=== PATIENT | male | born 1950 | race Caucasian/White ===

== ENCOUNTER → 2020-03-07 13:51 | Outpatient (CLI) | payer MEDICARE, OTHER, SELFPAY ==
[2020-03-07 15:12] LABS: Add Manual Diff / Slide Review NO; Basophils Absolute Auto 0 /uL (0-100); Basophils Percent Auto 0.4 % (0-2); Eosinophils Absolute Auto 100 /uL (0-450); Eosinophils Percent Auto 1.6 % (2-4); Hematocrit 39.3 % (41-53); Hemoglobin 13.4 g/dL (13.5-17.5); Lymphocytes Absolute Auto 1200 /uL (1100-4500); Mean Corpuscular Hemoglobin 31.8 PG (26-34); Mean Corpuscular Volume 93.6 fL (80-100); Monocytes Absolute Auto 600 /uL (0-900); Monocytes Percent Auto 9.5 % (3-14); Neutrophils Absolute Auto 4000 /uL (1500-7000); Neutrophils Percent Auto 67.5 % (50-75); Platelet Count 200 X10^3/uL (150-400); Red Cell Distribution Width 12.7 % (11.6-14.8); White Blood Cell Count 5.9 X10^3/uL (4.5-11.0)
[2020-03-07 16:02] LABS: Carbon Dioxide 28 mmol/L (22-32); Chloride 104 mmol/L (98-107); HEMOLYSIS < 15 (0-50); Potassium 3.7 mmol/L (3.4-5.1); Sodium 137 mmol/L (137-145)
== END ==
PROVIDERS: PCP Internal Medicine; Referring Provider Orthopaedic Surgery; Visit Provider Orthopaedic Surgery
DX: Z01.818 Encounter for other preprocedural examination (principal); Z01.812 Encounter for preprocedural laboratory examination
CPT/HCPCS: 36415; 80051; 85025; 93005; 93010

== ENCOUNTER → 2020-03-20 11:13 | Outpatient (CLI) | payer MEDICARE, OTHER, SELFPAY ==
[2020-03-21 21:20] LABS: COVID19 Sendout Not Detected (Not Detect)
== END ==
PROVIDERS: PCP Internal Medicine; Visit Provider Physician Assistant
DX: Z01.818 Encounter for other preprocedural examination (principal)
CPT/HCPCS: 87635

== ENCOUNTER 2020-03-23 08:08 | Day surgery (SDC) | payer MEDICARE, OTHER, SELFPAY ==
[2020-03-16 12:51] VITALS: BMI 32.0
[2020-03-23] VITALS (11 sets, daily range): BP systolic 124–151; BP diastolic 64–79; PULSE 73–93; RESP 14–19; TEMP 36.3–37.1; O2SAT 93–99; BMI 32.0
[2020-03-23] MEDS: ACETAMINOPHEN 325 MG TABLET 975 MG PO (09:17)
[2020-03-23] MEDS: CELECOXIB 200 MG CAPSULE PO (09:18)
[2020-03-23] MEDS: LACTATED RINGERS 1,000 ML 42 ML IV (09:18)
--- NOTE | 2020-03-23 09:43 | PM.PREOP ---
Pre-operative Note COVID-19 COVID-19 status: Negative Result date/Date tested (Pos, Neg/Pending): 03/21/20 Interval Note History & Physical reviewed/Exam performed by Physician: Yes Changes to H&P: No
--- NOTE | 2020-03-23 09:44 | PM.HP.1 ---
History of Present Illness History of Present Illness Date Patient Seen: 03/23/20 Time Patient Seen: 09:44 Chief complaint: Right Total Hip Arthroplasty *OPB* Narrative: 69-year-old male with severe right hip DJD admitted for right total hip arthroplasty. Patient History Medical History Easy bruisability (Acute) GERD (gastroesophageal reflux disease) (Acute) Hearing impaired (Acute) HLD (hyperlipidemia) (Acute) HTN (hypertension) (Acute) Meniere's disease (Acute) Numbness (Acute) MAYTE on CPAP (Acute) Osteoarthritis (Acute) Prostate cancer (Acute ~2017) Sciatica (Acute) Surgical History History of colonoscopy (Acute) History of esophagogastroduodenoscopy (EGD) (Acute) Hx of appendectomy (Acute) Hx of bilateral cataract extraction (Acute) Hx of decompressive lumbar laminectomy (Acute) Hx of neck surgery (Acute) Family & Social History Social History: household members spouse Prior Living Arrangements House Safety & Behavioral: Feels Safe in Current Yes Environment Been Physically Hurt or No Threatened By a Person Suicidal Ideation Description None Suicide Plan Description No Plan Tobacco & Substance use: Tobacco type cigarettes Smoking Status Former smoker alcohol intake current alcohol intake frequency 0-2 drinks per day Substance Use Type marijuana Meds Home Medications and Allergies Home Medications Medication Instructions Recorded Confirmed Type [omega 3 krill oil] 300 mg PO Q DAY #0 05/30/12 03/23/20 History aspirin 81 mg PO Q OTHER DAY #0 05/30/12 03/23/20 History cholecalciferol (vitamin D3) 125 mcg PO DAILY #0 05/30/12 03/23/20 History [Vitamin D3] multivitamin 1 cap PO DAILY #0 05/30/12 03/23/20 History omeprazole 20 mg PO SEEINSTR #0 05/30/12 03/23/20 History hydrochlorothiazide 25 mg PO QDAY #30 03/06/13 03/23/20 Rx amlodipine [Norvasc] 10 mg PO QDAY 03/16/20 03/23/20 History atorvastatin 40 mg PO BEDTIME 03/16/20 03/23/20 History gabapentin 300 mg PO BEDTIME PRN 03/16/20 03/23/20 History ibuprofen [Advil] 200 mg PO BEDTIME PRN 03/16/20 03/23/20 History losartan 100 mg PO QDAY 03/16/20 03/23/20 History metoprolol succinate 50 mg PO BEDTIME 03/16/20 03/23/20 History Allergies Allergy/AdvReac Type Severity Reaction Status Date / Time From CRESTOR Allergy Mild MUSCLE Uncoded 03/23/20 08:33 PAIN, FATIGUE From VYTORIN Allergy Mild MUSCLE Uncoded 03/23/20 08:33 PAIN,FATIGUE LISINOPRIL AdvReac Mild COUGH Uncoded 03/23/20 08:33 Review of Systems Review of Systems ROS: Yes All systems reviewed with the patient and are negative except as otherwise documented Exam Vital Signs (past 8 hours): - 03/23/20 08:38 Temperature 98.1 F Pulse Rate 74 Respiratory Rate 18 Blood Pressure 151/79 H Pulse Oximetry 99 Oxygen Delivery Method Room Air Narrative Exam Narrative: Afebrile, vital signs stable. Awake alert oriented and conversant in no obvious distress HEENT normocephalic atraumatic Lungs clear to auscultation Heart regular rate rhythm Abdomen benign Extremities distal neurovascular examination is intact there is limited range of motion of the right hip with pain on extremes of motion Assessment & Plan Assessment & Plan narrative: 69-year-old male with severe right hip DJD. Plan right total hip arthroplasty COVID-19 COVID-19 status: Negative Result date/Date tested (Pos, Neg/Pending): 03/21/20
[2020-03-23] MEDS: CEFAZOLIN 2 GM/100 ML FROZ.PIGGY IV ×2 (10:30→18:08)
--- NOTE | 2020-03-23 10:58 | SUR.OPER ---
Lateral on padded OR bed. Gel axillary roll. Arms secured on padded armboard with pillow supporting top arm. Padded hip positioner braces x4 - anterior and posterior chest and pelvis. Additional gel pad used anterior pelvis. Gel pad under bottom leg from knee to foot and secured with tape over sheet.
[2020-03-23] MEDS: ROPIVACAINE 0.5% PF 5 MG/ML 20ML VIAL 60 ML INJ (11:02)
[2020-03-23] MEDS: TRANEXAMIC ACID 1,000 MG VIAL 1000 MG INJ ×2 (11:02→11:30)
[2020-03-23] MEDS: MORPHINE 4 MG/ML INJ INJ (11:03)
[2020-03-23] MEDS: KETOROLAC 30 MG/ML VIAL IV (11:04)
--- NOTE | 2020-03-23 11:55 | P.OP_ITS ---
Operative Date/Time/Diagnoses Date of procedure: 03/23/20 Time of procedure: 11:55 Pre-op diagnosis: Right hip DJD Post-op diagnosis: same Procedure & Clinicians Procedure: Right total hip arthroplasty (CPT code 57008 with photo studio assistant) Same procedure as scheduled: Yes Indications: Patient is an 69-year-old male with severe right hip DJD. The patient has pain with activities and at rest, limited ambulation and activity tolerance, difficulties with ADLs, and failure of conservative treatment. We have discussed the nature of condition, treatment options, risks and benefits, and patient elects to proceed with total hip arthroplasty and gives informed consent. Surgeon: Bernabe Andrade Retail Manager: Kevyn Rasmussen Anesthesia Type: General Operative Notes Closure Type: primary Specimen(s): none sent Prosthetic devices, grafts, tissues, transplants, or devices: Acetabulum: Garcia [employer]hew R3 acetabular component size 54 mm Femoral component: Garcia [employer]hew Anthology stem size 7 with standard offset Femoral head: 36 mm + 0 Oxinium Estimated Blood Loss (mL): 100 Procedure in detail: After satisfaction induction of anesthetic, and administration of IV antibiotics, the patient was positioned in the lateral decubitus position with all bony prominences well padded and pelvic position secured using a hip sports equipment racker positioning device. Right hip and lower extremity prepped and draped in the usual sterile fashion, 1st dose of intravenous tranexamic acid was administered, then a longitudinal incision was created centered over the greater trochanter and carried sharply through the skin and subcutaneous tissues down to the fascia david which was divided longitudinally and retracted with a Charnley retractor. External rotators visualize, cut, tagged, and retracted posteriorly, then the capsule was cut in a T-type fashion with the corners tagged and retracted. Hip was dislocated and femoral neck cut made according to preoperative templating. Acetabular retractors then placed, and the acetabular labrum and osteophytes were excised. The acetabulum was then sequentially reamed to 53 mm with an excellent circumferential ream and fit with the trial. The trial component was removed and a permanent size 54 mm Garcia [employer] Nephew R3 acetabular component was selected, positioned, and impacted with satisfactory position and fixation achieved. Permanent liner was then inserted with the elevated lip directed posteriorly. Soft tissue then removed off the lateral femoral neck in the lateral neck was entered using a box osteotome. T- handled reamers placed down the canal followed by sequential broaching to 7 with the final broach left in place for trial reduction which demonstrated excellent leg length, range of motion, and stability characteristics with a 36 mm +0 trial ball. The trial and broach were removed, and a permanent size 7 Garcia [employer] Nephew Anthology stem was selected and inserted with excellent position and fixation achieved. Another trial reduction yielded the above characteristics so the trial ball was exchanged for a permanent 36 mm +0 Oxinium ball. The hip was irrigated and reduced and excellent leg length range of motion and stability characteristics were achieved and maintained. Periarticular tissues were infiltrated with ropivacaine, morphine, and Toradol. The hip was copiously irrigated, and the capsule repaired with #2 Ethibond, and the piriformis was repaired back to the greater trochanter with the same. Fascia david closed with interrupted #1 Ethibond sutures, and the subcutaneous tissues were closed in 2 layers of 0 Vicryl and 2 0 Vicryl. Skin was closed with ash and sterile dressings applied. Second dose of tranexamic acid was administered intravenously, and the anesthetic was terminated. Complications: none Post-operative Condition: stable Disposition: PACU Plan for aftercare: Patient will be admitted to the acute care [facility], and anticipate discharge on postop day 1 with follow-up in office in 10-14 days. Outpatient physical therapy will be arranged and patient will continue to observe posterior hip precautions. Patient will continue use of postoperative aspirin for 6 weeks postop.
--- NOTE | 2020-03-23 12:32 | SUR.PHASEI ---
Report given to floor RN. Pt stable, VSS, dressing dry and intact. Wide awake
--- NOTE | 2020-03-23 13:22 | PC.NURSE ---
Admission, Rec'd Pt into 224, alert and oriented. Admission and skin check completed. Bulky dressing to R hip. CDI. Call light provided. Pt eager to work with PT.
[2020-03-23] MEDS: ACETAMINOPHEN 325 MG TABLET 650 MG PO ×2 (13:31→21:17)
--- NOTE | 2020-03-23 14:00 | PT.IIE ---
Current Diagnoses Unilateral primary osteoarthritis, right hip (03/23/20) Surgery Performed Operation Date: 03/23/20 09:45 Actual Procedures p Total Hip Arthroplasty(Right) - Bernabe Andrade MD Surgical History (Last Reviewed 03/23/20 @ 09:44 by Bernabe Andrade MD) History of colonoscopy (Acute) History of esophagogastroduodenoscopy (EGD) (Acute) Hx of appendectomy (Acute) Hx of bilateral cataract extraction (Acute) Hx of decompressive lumbar laminectomy (Acute) Hx of neck surgery (Acute) Medical History (Last Reviewed 03/23/20 @ 09:44 by Bernabe Andrade MD) Easy bruisability (Acute) GERD (gastroesophageal reflux disease) (Acute) Hearing impaired (Acute) HLD (hyperlipidemia) (Acute) HTN (hypertension) (Acute) Meniere's disease (Acute) Numbness (Acute) MAYTE on CPAP (Acute) Osteoarthritis (Acute) Prostate cancer (Acute ~2017) Sciatica (Acute) Physical Therapy Inpatient Evaluation/Re-Eval M1 PT/OT-IP Prior Functional Status Start: 03/23/20 15:29 Freq: NEEDED Status: Active Protocol: Document 03/23/20 14:00 AB (Rec: 03/23/20 15:43 AB [id number]) Medical Review Prior Functional Status Medical History Reviewed Yes Communication able to make needs known Mobility and Gait pt stated that he is independent with all mobilities and ambulation without AD Social History Household Members spouse Living Arrangements House Number of Floors (Floors) Two Floors Number of Stairs To Enter/Railing? pt stays on main level of the house No steps to enter Home Environment Standard Height Toilet,Walk in Shower Home Equipment Four Wheel Walker,Straight Cane,Hand Held Shower,Grab Bars Near Toilet Additional Social History Comment pt has an adjustable bed at home M2 PT-IP Current Condition Start: 03/23/20 15:29 Freq: NEEDED Status: Active Protocol: Document 03/23/20 14:00 AB (Rec: 03/23/20 15:43 AB [id number]) Physical Therapy Current Condition Current Condition Evaluation Date 03/23/20 Treatment Diagnosis s/p R CINDY posterior approach; difficulty in walking Onset Date 03/23/20 Precautions Posterior Hip Precautions No Hip Flexion > 90 degrees,No Hip Internal Rotation,No Hip Adduction Weight Bearing Status Weight Bearing Status Weight Bear as Tolerated Allowed Weight Bearing Amount (enter % RLE WBAT or #) (%) M3 PT-IP Subjective Start: 03/23/20 15:29 Freq: NEEDED Status: Active Protocol: Document 03/23/20 14:00 AB (Rec: 03/23/20 15:43 AB [id number]) Subjective Physical Therapy Visit Type Type Initial Evaluation Visit Start Time 14:00 Visit Stop Time 15:11 Total Visit Minutes 71 Number of SALES TRAINEE Visits 0 Physical Therapy Visit Comments Patient Comments agreeable to do PT Therapy Pain Assessment Pain When Pain Assessed At Rest Pain Present Pain Present Pain Reported Location right hip Intensity 5 Scale Used Numeric (0 - 10) Pain Management Techniques Apply Cold,Re-positioning, Timing of Activity with Medications M4 PT-IP Mobility and Gait Start: 03/23/20 15:29 Freq: NEEDED Status: Active Protocol: Document 03/23/20 14:00 AB (Rec: 03/23/20 15:43 AB [id number]) PT-Bed Mobility Assessment Supine to Sit Supine to Sit Contact Guard Assistance,Head of Bed Elevated Sit to Supine Sit to Supine Contact Guard Assistance Scooting Scooting to Edge of Bed Contact Guard Assistance PT-Transfer Assessment Sit to and From Stand Sit to and from Stand Minimal Assistance,1 Person Assistance,Use of Upper Extremities Equipment Transfer Assistive Device Gait Belt,Front Wheeled Walker Orthotic/Prosthetic Devices or Brace: No Transfers Transfer Destination Chair Transfer Technique ambulated using FWW Comments Mobility Comments educated on hip precautions. spouse in room with pt. BP in supine: 130/71 pt completed supine to sit CGA with HOB elevated and cues for safety and hip precautions. was able sit on EOB SBA. c/o slight lightheadedness. BP: 143/77. completed sit to stand min A and cues. ambulated in room using FWW 35 ft min A. c/o slight numbness on anterior R thigh . sat on chair but pt requested to go back in bed. ambulated towards the bed using FWW ~ 15 ft min A and cues. completed sit to supine CGA. positioned in bed. BP: 141/72. call light and table placed within reach. Gait Assessment Gait Gait Assistance Required: Minimum Assistance,1 Person Assist Distance (Feet) 35 Able to Maintain Weight Bearing Status Yes During Gait Assistive Devices Assistive Device Gait Belt,Front Wheeled Walker Orthotic/Prosthetic Devices or Brace: No Gait Deviations General Gait Pattern Antalgic,Decreased Stride Length,Decreased Feet Clearance Factors Limiting Gait Function Factors Limiting Gait Function Decreased Activity Tolerance, Decreased Sensation,Decreased Strength,Difficulty Following Directions,Limited Range of Motion,Pain,Poor Balance,Poor Safety Awareness PT-Balance Assessment Sitting Balance and Reactions Static Sitting Balance Ability Good Dynamic Sitting Balance Ability Good Standing Balance and Reactions Static Standing Balance Ability Fair Dynamic Standing Balance Ability Fair Device Used FWW M5 PT-IP Objective Assessments Start: 03/23/20 15:29 Freq: NEEDED Status: Active Protocol: Document 03/23/20 14:00 AB (Rec: 03/23/20 15:43 AB [id number]) Orientation Orientation/Cognition Level of Alertness Alert Orientation Name,Place,Situation Safety Awareness Decreased Safety Awareness Memory Description Short Term Impaired Gross Range of Motion Lower Extremity ROM Assessment Within Functional Limits Strength Lower Extremity Strength Assessment Right Impaired Hip 3+/5 Knee 4-/5 Coordination Assessment Gross Coordination Gross Coordination WNL Sensation Assessment Sensation Gross Sensation Right LE Impaired Light Touch Impaired Proprioception (Position) Impaired Sensation Description Numbness Muscle Tone Muscle Tone WNL Yes M6 PT-IP Treatment Start: 03/23/20 15:29 Freq: NEEDED Status: Active Protocol: Document 03/23/20 14:00 AB (Rec: 03/23/20 15:43 AB [id number]) Physical Therapy Treatment Exercises Exercises Heel Slides Education Education Provided Precautions,Weight Bearing Status,Post-Op Packet,Safety M7 PT-IP Assessment and Plan Start: 03/23/20 15:29 Freq: NEEDED Status: Active Protocol: Document 03/23/20 14:00 AB (Rec: 03/23/20 15:43 AB [id number]) PT Summary Assessment and Plan Potential Rehabilitation Potential Good Status of Condition at Evaluation Evolving Summary Impairments Pain,ROM,Strength,Balance, Coordination,Sensation,Tone, Cognition,Bed Mobility, Transfers,Gait,Activity Tolerance Assessment Summary pt requiring min A with mobility but requires frequent cues to maintain hip precautions and seems to have difficulty following directions. pt just had surgery this morning and will likely improve during hospital stay. pt plans to go home and spouse to assist pt. will conduct caregiver training when appropriate. pt also stated that he is scheduled for outpt PT. will continue to assess progress. Goals Bed Mobility Goal Independent Transfer Goal Independent,Front Wheeled Walker Gait Goal Independent,Front Wheel Walker Gait Distance 200 Days to Meet Goals 5 Frequency of Treatment Frequency Of Treatment Twice a Day Treatment Plan Physical Therapy Treatment Plan Bed Mobility Training,Transfer Training,Gait Training, Therapeutic Exercise,Balance Retraining,Post Op Education, Discharge Planning,Hot or Cold Pack,Neuromuscular Re-ed, Coordination Retraining,Manual Therapy Recommendations To Nursing Amount of Assist Needed 1 Person Assist Discharge Recommendations PT Discharge Recommendations Home with Assistance, Outpatient PT Equipment Needed for Home Before FWW: will request for doctor's Discharge order Transportation Needs at Discharge Private Vehicle
[2020-03-23] MEDS: OXYCODONE IR 5 MG TABLET PO (15:02)
[2020-03-23] MEDS: METOPROLOL ER 50 MG TABLET PO (21:17)
[2020-03-23] MEDS: ATORVASTATIN 20 MG TABLET 40 MG PO (21:17)
[2020-03-23] MEDS: DOCUSATE 100 MG CAPSULE PO (21:18)
[2020-03-23] MEDS: hydrOXYzine pamoate 25 MG CAPSULE PO (21:21)
[2020-03-24 01:59] VITALS: BP 129/65; PULSE 80; RESP 20; TEMP 36.7; O2SAT 98
[2020-03-24 02:00] VITALS: BP 129/65; PULSE 80
[2020-03-24] MEDS: CEFAZOLIN 2 GM/100 ML FROZ.PIGGY IV (02:00)
[2020-03-24] MEDS: SODIUM CHLORIDE 0.9% FLUSH 10 ML IV ×2 (02:00→08:52)
[2020-03-24 04:56] VITALS: BP 139/69; PULSE 67; RESP 20; TEMP 35.8; O2SAT 98
[2020-03-24 05:06] LABS: Hematocrit 32.3 % (41-53)
[2020-03-24] MEDS: PANTOPRAZOLE 20 MG TABLET PO (05:54)
--- NOTE | 2020-03-24 05:58 | PC.NURSE ---
Night Note-Patient slept most of the night with his own C-pap on, no O2 bleed-in required. Denies pain, numbness, or tingling to RLE. Anterior edge of Rt hip drsg reinforced with wide tape, small [place] of shadow drainage to proximal end. Ambulated into BR with walker, using all hip precautions. VSS.
--- NOTE | 2020-03-24 08:21 | PC.NURSE ---
Day shift: Pt refused SCD's. Encouraged Pt to do those ankle waves/figure 8's with his ankles. Call light in reach. Pt ambulating very well with FWW. Pain 10/05. Will continue to monitor.
[2020-03-24] MEDS: OXYCODONE IR 5 MG TABLET PO (08:49)
[2020-03-24] MEDS: DOCUSATE 100 MG CAPSULE PO (08:50)
[2020-03-24] MEDS: LOSARTAN 50 MG TABLET 100 MG PO (08:50)
[2020-03-24] MEDS: AMLODIPINE 5 MG TABLET 10 MG PO (08:50)
[2020-03-24] MEDS: hydroCHLOROthiazide 25 MG TABLET PO (08:51)
[2020-03-24] MEDS: MULTIVITAMIN 1 TABLET 1 TAB PO (08:51)
[2020-03-24] MEDS: ACETAMINOPHEN 325 MG TABLET 650 MG PO (08:51)
[2020-03-24] MEDS: CHOLECALCIFEROL (VITAMIN D3) 5,000 UNIT TABLET 5000 UNIT PO (08:59)
[2020-03-24 09:09] VITALS: BP 129/83; PULSE 75; RESP 17; TEMP 37.2; O2SAT 95
--- NOTE | 2020-03-24 09:45 | PT.IPTN ---
Current Diagnoses Unilateral primary osteoarthritis, right hip (03/23/20) Surgery Performed Operation Date: 03/23/20 09:45 Actual Procedures p Total Hip Arthroplasty(Right) - Bernabe Andrade MD Physical Therapy Treatment Note M2 PT-IP Current Condition Start: 03/23/20 15:29 Freq: NEEDED Status: Active Protocol: Document 03/23/20 14:00 AB (Rec: 03/23/20 15:43 AB [id number]) Physical Therapy Current Condition Current Condition Evaluation Date 03/23/20 Treatment Diagnosis s/p R CINDY posterior approach; difficulty in walking Onset Date 03/23/20 Precautions Posterior Hip Precautions No Hip Flexion > 90 degrees,No Hip Internal Rotation,No Hip Adduction Weight Bearing Status Weight Bearing Status Weight Bear as Tolerated Allowed Weight Bearing Amount (enter % RLE WBAT or #) (%) M3 PT-IP Subjective Start: 03/23/20 15:29 Freq: NEEDED Status: Active Protocol: Document 03/24/20 09:45 AB (Rec: 03/24/20 12:58 AB [id number]) Subjective Physical Therapy Visit Type Type Treatment Note Visit Start Time 09:45 Visit Stop Time 10:25 Total Visit Minutes 40 Number of ANODE CREW SUPERVISOR Visits 0 Physical Therapy Visit Comments Patient Comments pt is agreeable to do PT Therapy Pain Assessment Pain Present Pain Present Denied Pain Location right hip Scale Used stated no pain but tightness or soreness M4 PT-IP Mobility and Gait Start: 03/23/20 15:29 Freq: NEEDED Status: Active Protocol: Document 03/24/20 09:45 AB (Rec: 03/24/20 12:58 AB [id number]) PT-Bed Mobility Assessment Supine to Sit Supine to Sit Maximum Assistance,1 Person Assistance,Head of Bed Elevated PT-Transfer Assessment Sit to and From Stand Sit to and from Stand Standby Assistance,1 Person Assistance,Use of Upper Extremities Equipment Transfer Assistive Device Gait Belt,Front Wheeled Walker Orthotic/Prosthetic Devices or Brace: No Transfers Transfer Destination Chair Transfer Technique ambulated using FWW Transfer Ability Level of Assist Standby Assistance,1 Person Assistance,Use of Upper Extremities Comments Mobility Comments reviewed hip precautions with pt. pt completed supine to sit with HOB elevated max A and cues. pt stated that spouse will be able to assist him with bed mobility and spouse is a retired nurse and will know how to assist and does not want caregiver training done. pt complete sit to stand SBA and ambulated towards the chair SBA. pt educated on sit <>stand technique and to maintain hip precautions and completed 4 reps from chair and 4 reps from bed with initial cues but able to complete towards the end without cues. pt ambulated in hallway ~ 150 ft SBA. agreed to sit up on chair. positioned on chair. call light and table placed within reach. pt with no other concerns. FWW order obtained and dispensed to pt . pt signed papers. Gait Assessment Gait Gait Assistance Required: Standby Assistance Distance (Feet) 150 Able to Maintain Weight Bearing Status Yes During Gait Assistive Devices Assistive Device Gait Belt,Front Wheeled Walker Orthotic/Prosthetic Devices or Brace: No Gait Deviations General Gait Pattern Antalgic,Decreased Stride Length,Decreased Feet Clearance Factors Limiting Gait Function Factors Limiting Gait Function Decreased Activity Tolerance, Decreased Strength,Limited Range of Motion,Pain,Poor Balance,Poor Safety Awareness Comments Gait Comments pls refer to mobility section for details M5 PT-IP Objective Assessments Start: 03/23/20 15:29 Freq: NEEDED Status: Active Protocol: Document 03/23/20 14:00 AB (Rec: 03/23/20 15:43 AB [id number]) Orientation Orientation/Cognition Level of Alertness Alert Orientation Name,Place,Situation Safety Awareness Decreased Safety Awareness Memory Description Short Term Impaired Gross Range of Motion Lower Extremity ROM Assessment Within Functional Limits Strength Lower Extremity Strength Assessment Right Impaired Hip 3+/5 Knee 4-/5 Coordination Assessment Gross Coordination Gross Coordination WNL Sensation Assessment Sensation Gross Sensation Right LE Impaired Light Touch Impaired Proprioception (Position) Impaired Sensation Description Numbness Muscle Tone Muscle Tone WNL Yes M6 PT-IP Treatment Start: 03/23/20 15:29 Freq: NEEDED Status: Active Protocol: Document 03/24/20 09:45 AB (Rec: 03/24/20 12:58 [id number]) Physical Therapy Treatment Education Education Provided Precautions,Weight Bearing Status,Post-Op Packet,Safety Equipment Issued Equipment Type and Company FWW dispensed from [employer]: pt signed papers M7 PT-IP Assessment and Plan Start: 03/23/20 15:29 Freq: NEEDED Status: Active Protocol: Document 03/24/20 09:45 AB (Rec: 03/24/20 12:58 [id number]) PT Summary Assessment and Plan Potential Rehabilitation Potential Good Summary Impairments Pain,ROM,Strength,Balance, Coordination,Sensation,Tone, Cognition,Bed Mobility, Transfers,Gait,Activity Tolerance Progress Towards Goals Progressing Toward Goals Assessment Summary pt requiring SBA for ambulation but requiring max A for bed mobility. pt's spouse will be assisting pt at home. pt stated that spouse is a retired nurse and knows how to assist him. pt is also set up for outpt PT. Goals Bed Mobility Goal Independent Transfer Goal Independent,Front Wheeled Walker Gait Goal Independent,Front Wheel Walker Gait Distance 200 Days to Meet Goals 5 Frequency of Treatment Frequency Of Treatment Twice a Day Treatment Plan Physical Therapy Treatment Plan Bed Mobility Training,Transfer Training,Gait Training, Therapeutic Exercise,Balance Retraining,Post Op Education, Discharge Planning,Hot or Cold Pack,Neuromuscular Re-ed, Coordination Retraining,Manual Therapy Recommendations To Nursing Amount of Assist Needed 1 Person Assist Discharge Recommendations PT Discharge Recommendations Home with Assistance, Outpatient PT Transportation Needs at Discharge Private Vehicle
--- NOTE | 2020-03-24 13:05 | CM.IDA ---
Initial DCP Assessment Note: Patient is a 69 yo male, resident of [place]. Patient is POD#1 from right hip surgery w/ Dr Andrade PCP: Dr Rajeev Brown Payer: [facility]/ [employer] Met w/patient to introduce role .Patient sitting up in chair, states he is feeling quite well and anticipates to DC home w/spouse later this afternoon. Patient has been cleared by therapy team for return home and IRENA Mota agrees, patient should have no needs from this SCREENER PERFUMER today. P: DC home w/spouse via private auto, outpt PT NICOLE Paredes
--- NOTE | 2020-03-24 13:37 | PC.NURSE ---
Day shift: Pt taken to car driven by bhis spouse by this ad copy writer in WC. Dressing remains intact with quarter sized shadow drainage on the proximal end. Discussed and showed Pt and his spouse how to change dressing if needed per conversation w/ MARIN Rasmussen. Paperwork is signed and all questions answered. Pt has MD figueroa. Pt has all personal belongings.
--- NOTE | 2020-03-24 14:42 | P.DS_ITS ---
History of Present Illness History of Present Illness Date Patient Seen: 03/24/20 Time Patient Seen: 07:04 Chief complaint: Right Total Hip Arthroplasty *OPB* Narrative: Patient is an 69-year-old male with severe right hip DJD. The patient has pain with activities and at rest, limited ambulation and activity tolerance, difficulties with ADLs, and failure of conservative treatment. We have discussed the nature of condition, treatment options, risks and benefits, and patient elects to proceed with total hip arthroplasty and gives informed consent Discharge Providers Provider Discharge Date: 03/24/20 Primary care physician: Rajeev Brown MD Consults: 03/23/20 12:48 Consult to Discharge Planning Routine Comment: Consult to Physical Therapy Evaluate & Treat Comment: Physician Instructions: post op CINDY protocol Consult to Respiratory Therapy Evaluate & Treat Comment: Physician Instructions: Evaluate and treat 03/24/20 08:43 Consult to Physical Therapy Evaluate & Treat Comment: Physician Instructions: FWW For Home Use Discharge provider: Kevyn Rasmussen PA-C Summary Hospital Course Discharge Diagnosis: Right hip DJD Hospital Course: Patient is an 69-year-old male with severe right hip DJD. The patient has pain with activities and at rest, limited ambulation and activity tolerance, difficulties with ADLs, and failure of conservative treatment. We lynch ve discussed the nature of condition, treatment options, risks and benefits, and patient elects to proceed with total hip arthroplasty and gives informed consent. Surgeon: Bernabe Andrade Dental Office Coordinator: Kevyn Rasmussen Anesthesia Type: General Operative Notes Closure Type: primary Specimen(s): none sent Prosthetic devices, grafts, tissues, transplants, or devices: Acetabulum: [employer] R3 acetabular component size 54 mm Femoral component: [employer] Anthology stem size 7 with standard offset Femoral head: 36 mm + 0 Oxinium Estimated Blood Loss (mL): 100 Patient admitted to the hospital for right total hip arthroplasty. Patient consented to the same. Patient taken to the operating room underwent right total hip arthroplasty. Patient back in his room recovering well as in stable c ondition. Exam Vital Signs (past 8 hours): - 03/24/20 09:09 Temperature 98.9 F Pulse Rate 75 Respiratory Rate 17 Blood Pressure 129/83 Pulse Oximetry 95 Oxygen Delivery Method CPAP Oxygen Flow Rate 0 Narrative Exam Narrative: Patient sitting comfortably in bedside chair in no apparent distress. Right hip dressing is clean, dry and intact. Motor functions intact distally. Sensation grossly intact to light touch. Right leg is warm and dry. Objective Labs Result Diagrams: 03/24/20 04:50 Labs: Laboratory Results - last 24 hr 03/24/20 04:50 Hgb 11.0 L Hct 32.3 L Discharge Assessment & Plan Assessment and Plan Assessment: Patient progressing as expected status post right total hip arthroplasty. Follow-up in 2 weeks. Outpatient physical therapy. Continue posterior hip precautions. Aspirin for 6 weeks. Discharge Plan Discharge Plan Patient Disposition: Home Discharge comment: DC home today if cleared by PT Discharge Med Rec/Prescriptions Prescriptions: New acetaminophen 325 mg Tablet 650 mg PO TID Qty: 60 RF: 0 oxycodone 5 mg Tablet 5 mg PO Q3HR PRN (Reason: Pain, Moderate (4-6)) Qty: 40 RF: 0 hydroxyzine pamoate 25 mg Capsule 25 mg PO Q6HR PRN (Reason: Spasms) Qty: 20 RF: 0 Continued aspirin 81 mg Tablet,Delayed Release (Dr/Ec) 81 mg PO Q OTHER DAY Qty: 0 RF: 0 multivitamin Capsule 1 cap PO DAILY Qty: 0 RF: 0 [omega 3 krill oil] 300 mg PO Q DAY Qty: 0 RF: 0 omeprazole 20 MG capsule,delayed release(DR/EC) 20 mg PO SEEINSTR Qty: 0 RF: 0 cholecalciferol (vitamin D3) [Vitamin D3] 125 mcg (5,000 unit) Tablet 125 mcg PO DAILY Qty: 0 RF: 0 hydrochlorothiazide 25 MG tablet 25 mg PO QDAY Qty: 30 RF: 1 atorvastatin 40 mg Tablet 40 mg PO BEDTIME RF: 0 metoprolol succinate 50 mg Tablet Extended Release 24 Hr 50 mg PO BEDTIME RF: 0 losartan 50 MG tablet 100 mg PO QDAY RF: 0 amlodipine [Norvasc] 5 MG tablet 10 mg PO QDAY RF: 0 ibuprofen [Advil] 200 mg Tablet 200 mg PO BEDTIME PRN (Reason: Pain) RF: 0 gabapentin 300 mg Capsule 300 mg PO BEDTIME PRN (Reason: Pain) RF: 0 Follow up/Referrals: Rajeev Brown MD [Primary Care Provider] - Discharge Orders: Discharge (Order); Ordered 03/24/20 Ordered By: Kevyn Rasmussen Provider Discharge Instructions Diet: Diet as Tolerated Activity: WBAT, posterior hip precautions Cold/Heat Therapy: ice as needed Skin/Wound/Dressing Care Report to your healthcare provider any signs of infection, such as:: chills, fever, increased pain, unusual drainage and unusual redness Dressing: keep clean and dry Visit Report/Discharge Packet Instructions: DI for Hip Replacement, How to Prevent Falls, Stool Softeners, Oxycodone, Hydroxyzine Stand Alone Forms: Surgery Discharge Discharge Data Primary Care Provider: Rajeev Brown Attending Provider: Bernabe Andrade Discharges patient from system. Discharge Date/Time: 03/24/20 13:39 Quality VTE Deep Vein Thrombosis/Pulmonary Embolism Present on Admission: No
== END 2020-03-24 13:39 | disposition home or self-care (01) ==
LOC: OR 11:02 → AC 11:03
PROVIDERS: PCP Internal Medicine; Referring Provider Orthopaedic Surgery; Visit Provider Orthopaedic Surgery
PROC: 0SR90JZ Replacement of Right Hip Joint with Synthetic Substitute, Open Approach (ICD-10-PCS; CPT 27130; principal; 2020-03-23 09:45)
DX: M16.11 Unilateral primary osteoarthritis, right hip (principal); I10 Essential (primary) hypertension; G47.33 Obstructive sleep apnea (adult) (pediatric); M70.61 Trochanteric bursitis, right hip
CPT/HCPCS: 27130; 36415; 85014; 85018; 97116; 97162; 97530; C1776; J0690; J1100; J1885; J2250; J2270; J2405; J2704; J3010

== ENCOUNTER 2020-03-27 10:40 | Emergency (ER) | payer MEDICARE, OTHER, SELFPAY ==
[2020-03-23 11:50] VITALS: BMI 32.0
[2020-03-27 10:45] VITALS: BP 160/70; PULSE 70; RESP 20; TEMP 37.1; O2SAT 99; BMI 31.7
[2020-03-27 10:50] VITALS: PULSE 65; O2SAT 100
[2020-03-27 11:00] VITALS: PULSE 63; O2SAT 98
--- NOTE | 2020-03-27 11:08 | ED.EXTPRO ---
HPI - Extremity Problem <FEDERICO Mariano - Last Filed: 03/27/20 15:44> General Chief complaint: Extremity Problem,Nontraumatic Stated complaint: post hip replacement, lower leg reactions, want US Time Seen by Provider: 03/27/20 11:08 Source: patient Mode of arrival: Wheelchair Limitations: no limitations History of Present Illness HPI Narrative: This is a 69-year-old male, former smoker, s/p elective elective right hip surgery by Dr. Andrade 4 days ago and takes baby aspirin 2 tabs daily presents to ED with significant other with chief complain of right ankle, dorsal foot, calf, near Achilles tendon discomfort for last 2 days. Spouse reports pain has increased from his baseline that he had to take [place] at 3:00 a.m. this morning. Patient has been taking Tylenol for pain management until then. Patient denies fever, chills, nausea or vomiting. Patient denies increasing drainage, bleeding, warm to touch on right hip surgical site. Patient denies history of blood clots. Patient denies chest pain, breathing difficulty, or syncopal episodes. Patient states has been ambulating after he was discharged to home. Related Data Home Medications Medication Instructions Recorded Confirmed [omega 3 krill oil] 300 mg PO Q DAY #0 05/30/12 03/23/20 aspirin 81 mg PO Q OTHER DAY #0 05/30/12 03/23/20 cholecalciferol (vitamin D3) 125 mcg PO DAILY #0 05/30/12 03/23/20 [Vitamin D3] multivitamin 1 cap PO DAILY #0 05/30/12 03/23/20 omeprazole 20 mg PO SEEINSTR #0 05/30/12 03/23/20 amlodipine [Norvasc] 10 mg PO QDAY 03/16/20 03/23/20 atorvastatin 40 mg PO BEDTIME 03/16/20 03/23/20 gabapentin 300 mg PO BEDTIME PRN 03/16/20 03/23/20 ibuprofen [Advil] 200 mg PO BEDTIME PRN 03/16/20 03/23/20 losartan 100 mg PO QDAY 03/16/20 03/23/20 metoprolol succinate 50 mg PO BEDTIME 03/16/20 03/23/20 Previous Rx's Medication Instructions Recorded hydrochlorothiazide 25 mg PO QDAY #30 03/06/13 acetaminophen 650 mg PO TID #60 tab 03/24/20 hydroxyzine pamoate 25 mg PO Q6HR PRN #20 cap 03/24/20 oxycodone 5 mg PO Q3HR PRN #40 tab 03/24/20 Allergies Allergy/AdvReac Type Severity Reaction Status Date / Time From CRESTOR Allergy Mild MUSCLE Uncoded 03/27/20 10:56 PAIN, FATIGUE From VYTORIN Allergy Mild MUSCLE Uncoded 03/27/20 10:56 PAIN,FATIGUE LISINOPRIL AdvReac Mild COUGH Uncoded 03/27/20 10:56 Review of Systems <FEDERICO Mariano - Last Filed: 03/27/20 15:44> Review of Systems Narrative: General: Denies fever, chills, fatigue, malaise, sweats. HEENT: Denies sinus pain, ear pain, sore throat, difficulty swallowing, dizziness. Respiratory: Denies dyspnea, cough, wheezing, hemoptysis, sputum. Cardiovascular: Denies chest pain, palpitations, orthopnea, edema. Gastrointestinal: Denies nausea, vomiting, abdominal pain, diarrhea, constipation, melena. : Denies dysuria, frequency, incontinence, hematuria, urinary retention. Musculoskeletal: See HPI Skin: See HPI Neurologic: Denies weakness, headache, numbness, change in speech, confusion, seizures, incoordination. Psychiatric: No concerning psychosocial issues. 12-point review of systems is negative except for those stated above. Patient History <FEDERICO Mariano - Last Filed: 03/27/20 15:44> Medical History (Updated 03/27/20 @ 13:27 by FEDERICO Mariano) Easy bruisability (Acute) GERD (gastroesophageal reflux disease) (Acute) Hearing impaired (Acute) HLD (hyperlipidemia) (Acute) HTN (hypertension) (Acute) Meniere's disease (Acute) Numbness (Acute) MAYTE on CPAP (Acute) Osteoarthritis (Acute) Prostate cancer (Acute ~2017) Sciatica (Acute) Surgical History (Updated 03/27/20 @ 12:17 by FEDERICO Mariano) History of colonoscopy (Acute) History of esophagogastroduodenoscopy (EGD) (Acute) History of right hip replacement (Acute) Hx of appendectomy (Acute) Hx of bilateral cataract extraction (Acute) Hx of decompressive lumbar laminectomy (Acute) Hx of neck surgery (Acute) Social History household members: spouse Smoking Status: Former smoker alcohol intake: current Smoking Status: Former smoker alcohol intake frequency: 0-2 drinks per day Substance Use Type: marijuana Exam <FEDERICO Mariano - Last Filed: 03/27/20 15:44> Narrative Exam Narrative: General appearance: well developed, well nourished, in no acute distress. Head: normocephalic, atraumatic, no scalp lesions, non-tender. ENT: Hearing grossly intact. Nose without bleeding, purulent discharge, septal hematoma or deviation. Turbinate without erythema or swelling. Facial sinuses nontender to palpate. Mucous membrane moist, no mucosal lesion. Throat without erythema, tonsillar hypertrophy or exudate. Uvula in midline, airway patent. Neck/Thyroid: neck supple, full range of motion, no visible masses or meningeal signs. No JVD, non-tender without lymphadenopathy. Skin: no suspicious rashes, lesions over visible areas. Right hip surgical site without warmth, purulent drainage. Ecchymosis to surgical site with mild edema. Heart: no clubbing, no cyanosis, no edema. S1 and S2 normal. RRR w/o murmurs, clicks, or bruits. Lungs: Breathing even and unlabored. No stridor. No accessory muscles used. Able to speak in full sentences. Chest: normal shape and expansion. Abdomen: non-obese, non-distended. Neurologic: alert and oriented. Cognitive exam, [employer] W[employer]ATOR and PNS grossly intact on informal exam. Psych: good eye contact, normal affect. Initial Vital Signs Initial Vital Signs: Vital Signs Temperature 98.7 F 03/27/20 10:45 Pulse Rate 70 03/27/20 10:45 Respiratory Rate 20 03/27/20 10:45 Blood Pressure 160/70 H 03/27/20 10:45 Pulse Oximetry 99 03/27/20 10:45 Extrem Right lower extremity: edema, hip/thigh Details: abnormal to inspection, swelling, normal ROM and ecchymosis, lower leg Details: normal to inspection, tenderness (Anterior and posterior) and no edema; no erythema, no localized swelling, no ecchymosis and no unusual warmth, ankle Details: normal to inspection, swelling (Mild) and normal ROM; no unusual warmth and no ecchymosis and foot Details: normal capillary refill, normal to inspection and toes with normal ROM <José Graves MD - Last Filed: 03/27/20 19:50> Initial Vital Signs Initial Vital Signs: Vital Signs Temperature 98.7 F 03/27/20 10:45 Pulse Rate 70 03/27/20 10:45 Respiratory Rate 20 03/27/20 10:45 Blood Pressure 160/70 H 03/27/20 10:45 Pulse Oximetry 99 03/27/20 10:45 Scores <FEDERICO Mariano - Last Filed: 03/27/20 15:44> GCS Gabby coma scale eye opening: Spontaneous Gabby coma scale verbal response: Orientated Gabby coma scale motor response: Obey commands Gabby coma scale total score: 15 Wells' Criteria for DVT Active Cancer (Treatment within 6 months): No Bedridden recently >3 days or major surgery within 4 weeks: Yes Calf Swelling >3cm compared to other leg: No Collateral (nonvericose) superficial veins present: Yes Entire leg swollen: No Localized tenderness along the deep vein system: No Pitting edema, confined to symtomatic leg: No Paralysis, paresis, or recent plaster immobilization of ext: Yes Previously documented DVT: No Alternative dx to DVT as likely or more likely: No Wells' criteria for DVT: 3 Course <FEDERICO Mariano - Last Filed: 03/27/20 15:44> Orders Ordered: ED Orders 03/27/20 11:24 US periph venous low extrem rt Stat Vital Signs Vital signs: Vital Signs - 8 hr 03/27/20 13:43 Pulse Rate 66 Respiratory Rate 12 Blood Pressure 113/61 <José Graves MD - Last Filed: 03/27/20 19:50> Orders Ordered: ED Orders 03/27/20 11:24 US periph venous low extrem rt Stat Vital Signs Vital signs: Vital Signs - 8 hr 03/27/20 13:43 Pulse Rate 66 Respiratory Rate 12 Blood Pressure 113/61 MDM - Extremity (Nontraumatic) <FEDERICO Mariano - Last Filed: 03/27/20 15:44> Differential Diagnosis Differential diagnosis: Likely cellulitis, deep vein thrombosis of lower extremity and other (Postsurgical pain) Medical Records Attestation: I reviewed the patient's medical records. Imaging Data US - DVT: Radiologist's Impression: [address] [address] Ultrasound Report Signed Patient: Vincenzo Navarro JMR#: [id number] : 9Acct:[id number] Age/Sex: 69 / MDate of Service: 03/27/20 Loc: ED Accession Number: [id number] Procedure: US periph venous low extrem rt Ordering Provider: Jamaal Nieto PROCEDURE: US PERIPH VENOUS LOW EXTREM RT INDICATIONS: ANKLE/FOOT PAIN 4 DAYS RIGHT HIP REPLACEMENT TECHNIQUE: Real-time imaging, as well as color and pulse Doppler interrogation, were performed of the lower extremity deep veins from the inguinal ligament to the popliteal fossa. COMPARISON: None. FINDINGS: The common femoral, femoral and popliteal veins are normally compressible, and free of intraluminal thrombus. Color and pulse Doppler demonstrate normal phasic intraluminal flow. There is normal augmentation response to distal compression maneuver. IMPRESSION: Negative for deep venous thrombosis. Dictated by: Anand Sanders M.D. on 03/27/2020 at 11:40 Approved by: Anand Sanders M.D. on 03/27/2020 at 11:41 MDM Narrative Medical decision making narrative: This is a 69-year-old gentleman who presents to ED with increased in discomfort in right lower leg after right hip replacement surgery 4 days ago. Patient was discharged to home and has been up and ambulating. Patient noticed increased in pain in right calf and anterior leg, dorsal foot, Achilles tendon region last 2 days that he had to take oxycodone last night. He has been taking Tylenol for pain management and prior to this. Patient contacted on-call orthopedic doctor and was recommended to come into ED for an evaluation. Calf was soft and compressible to palpate in right leg. Intact sensation and pulses in right foot. Surgical incision in right hip with ash intact and clean without purulent discharge. Has ecchymotic discoloration and swelling but not warm to touch and does not appears to be having an infection. Wells score for DVT was 3. Ultrasound test was negative for DVT. The pain is likely related to postsurgical right hip replacement. Findings were shared with patient and significant other and advised to follow up with Dr. Andrade and return precautions were discussed with patient. They both verbalized understanding in agreement with treatment plan. Discharge Plan Departure Patient Disposition: Home Clinical Impression: Lower leg pain Qualifiers: Laterality: right Qualified Code(s): M79.661 - Pain in right lower leg Discharge Date/Time: 03/27/20 13:45 Instructions: DI for Leg Pain Activity Restrictions/Additional Instructions: You have been diagnosed with right lower leg discomfort. Ultrasound on right lower leg and it does not indicate deep vein thrombosis at this time. It is likely her pain is related to hip surgery. Surgical incision site looks good today without signs of infection.. What to do: *Take your medications as directed. *Follow up with your primary care provider in 2-3 days, call for an appointment. Let them know you were seen in the ED and that we asked you to be seen in follow up. *Return to ED if you have any new, worsening, or concerning symptoms, such as [fever, chills, chest pain, breathing difficulty, worsening pain, increasing swelling/redness/numbness/weakness, drainage from surgical wound or any acute concerns]. Prescriptions: No Action aspirin 81 mg Tablet,Delayed Release (Dr/Ec) 81 mg PO Q OTHER DAY Qty: 0 RF: 0 multivitamin Capsule 1 cap PO DAILY Qty: 0 RF: 0 [omega 3 krill oil] 300 mg PO Q DAY Qty: 0 RF: 0 omeprazole 20 MG capsule,delayed release(DR/EC) 20 mg PO SEEINSTR Qty: 0 RF: 0 cholecalciferol (vitamin D3) [Vitamin D3] 125 mcg (5,000 unit) Tablet 125 mcg PO DAILY Qty: 0 RF: 0 hydrochlorothiazide 25 MG tablet 25 mg PO QDAY Qty: 30 RF: 1 atorvastatin 40 mg Tablet 40 mg PO BEDTIME RF: 0 metoprolol succinate 50 mg Tablet Extended Release 24 Hr 50 mg PO BEDTIME RF: 0 losartan 50 MG tablet 100 mg PO QDAY RF: 0 amlodipine [Norvasc] 5 MG tablet 10 mg PO QDAY RF: 0 ibuprofen [Advil] 200 mg Tablet 200 mg PO BEDTIME PRN (Reason: Pain) RF: 0 gabapentin 300 mg Capsule 300 mg PO BEDTIME PRN (Reason: Pain) RF: 0 acetaminophen 325 mg Tablet 650 mg PO TID Qty: 60 RF: 0 oxycodone 5 mg Tablet 5 mg PO Q3HR PRN (Reason: Pain, Moderate (4-6)) Qty: 40 RF: 0 hydroxyzine pamoate 25 mg Capsule 25 mg PO Q6HR PRN (Reason: Spasms) Qty: 20 RF: 0 Referrals: Rajeev Brown MD [Primary Care Provider] - Bernabe Andrade MD [Physician] -
--- NOTE | 2020-03-27 11:24 | DI.US.S_ITS ---
PROCEDURE: US PERIPH VENOUS LOW EXTREM RT INDICATIONS: ANKLE/FOOT PAIN 4 DAYS RIGHT HIP REPLACEMENT TECHNIQUE: Real-time imaging, as well as color and pulse Doppler interrogation, were performed of the lower extremity deep veins from the inguinal ligament to the popliteal fossa. COMPARISON: None. FINDINGS: The common femoral, femoral and popliteal veins are normally compressible, and free of intraluminal thrombus. Color and pulse Doppler demonstrate normal phasic intraluminal flow. There is normal augmentation response to distal compression maneuver. IMPRESSION: Negative for deep venous thrombosis. Dictated by: Anand Snaders M.D. on 03/27/2020 at 11:40 Approved by: Anand aSnders M.D. on 03/27/2020 at 11:41
--- NOTE | 2020-03-27 13:33 | PC.NURSE ---
Patient came in with post op surgical pain in the right foot. He had a CINDY on saturday and since then has been having heel pain in that same leg. The leg is cool, pink, and dry but has cap refill of less that 2 seconds. He denies sensation loss over a majority of the extremities but does have slight tingling in his toes. He reports having two spine surgeries in the past and states that his legs tingle if he sits down for too long. His surgical site was undressed, assessed for infections, and redressed with new dressings. surgical site had scant seroussanguinous drainage and was free of purulent exudate, redness, abnormal post op swelling, or heat.
[2020-03-27 13:43] VITALS: BP 113/61; PULSE 66; RESP 12
== END 2020-03-27 13:45 | disposition home or self-care (01) ==
PROVIDERS: Emergency Provider Nurse Practitioner Family; PCP Internal Medicine
DX: M79.661 Pain in right lower leg (principal); Z96.641 Presence of right artificial hip joint
CPT/HCPCS: 93971; 99282; 99283

== ENCOUNTER 2023-05-12 11:09 | Emergency (ER) | payer MEDICARE, OTHER, SELFPAY ==
[2020-03-23 11:50] VITALS: BMI 32.0
[2023-05-12 11:21] VITALS: BP 163/75; PULSE 72; RESP 16; TEMP 36.6; O2SAT 100; BMI 31.0
--- NOTE | 2023-05-12 13:52 | ED.NECK ---
HPI - Neck Pain/Injury General Chief Complaint: Neck Pain/Injury Stated Complaint: did something to neck T-4/HX surgery Time Seen by Provider: 05/12/23 13:17 Source: patient Mode of arrival: Ambulatory Limitations: no limitations History of Present Illness HPI Narrative: 72-year-old male who is here for evaluation of left-sided neck discomfort. He states that it started a couple days ago. There was not 1 specific incident that caused the pain. He denies any fevers. It is causing him somewhat of a headache in his now moved to the right side. No sinus congestion. No ear pain. No problems swallowing. He does have tingling down into his arms but has had that for quite some time. He has had surgery in the past. Did have a Valium at home that he tried but that was 3 years old. No fevers. Related Data Home Medications Medication Instructions Recorded Confirmed [omega 3 krill oil] 300 mg PO Q DAY ##0 05/30/12 03/23/20 aspirin 81 mg tablet,delayed 81 mg PO Q OTHER DAY ##0 05/30/12 03/23/20 release cholecalciferol (vitamin D3) 125 125 mcg PO DAILY ##0 05/30/12 03/23/20 mcg (5,000 unit) tablet (Vitamin D3) multivitamin 1 cap PO DAILY ##0 05/30/12 03/23/20 omeprazole 20 mg capsule,delayed 20 mg PO SEEINSTR ##0 05/30/12 03/23/20 release amlodipine 5 mg tablet (Norvasc) 10 mg PO QDAY 03/16/20 03/23/20 atorvastatin 40 mg tablet 40 mg PO BEDTIME 03/16/20 03/23/20 gabapentin 300 mg capsule 300 mg PO BEDTIME PRN Pain 03/16/20 03/23/20 ibuprofen 200 mg tablet (Advil) 200 mg PO BEDTIME PRN Pain 03/16/20 03/23/20 losartan 50 mg tablet 100 mg PO QDAY 03/16/20 03/23/20 metoprolol succinate 50 mg 50 mg PO BEDTIME 03/16/20 03/23/20 tablet,extended release 24 hr Previous Rx's Medication Instructions Recorded hydrochlorothiazide 25 mg tablet 25 mg PO QDAY ##30 03/06/13 acetaminophen 325 mg tablet 650 mg PO TID #60 tabs 03/24/20 hydroxyzine pamoate 25 mg capsule 25 mg PO Q6HR PRN Spasms #20 caps 03/24/20 oxycodone 5 mg tablet 5 mg PO Q3HR PRN Pain, Moderate 03/24/20 (4-6) #40 tabs cyclobenzaprine 10 mg tablet 10 mg PO TID PRN muscle spasm #21 05/12/23 tabs diazepam 5 mg tablet (Valium) 5 mg PO BID PRN muscle spasm #10 05/12/23 tabs Allergies Allergy/AdvReac Type Severity Reaction Status Date / Time lisinopril Allergy Intermediate Cough Verified 05/12/23 12:54 rosuvastatin [From Crestor] Allergy Mild Muscle Pain Verified 05/12/23 12:54 ezetimibe [From Vytorin] AdvReac Mild Muscle Pain Verified 05/12/23 12:54 simvastatin [From Vytorin] AdvReac Mild Muscle Pain Verified 05/12/23 12:54 Review of Systems Constitutional Constitutional: Reports system reviewed and no additional complaints, except as documented Eyes Eyes: Reports system reviewed and no additional complaints, except as documented ENT Ears, Nose, Mouth, and Throat: Reports system reviewed and no additional complaints, except as documented Cardiovascular Cardiovascular: Reports system reviewed and no additional complaints, except as documented Integumentary/Breasts Skin/Breast: Reports system reviewed and no additional complaints, except as documented Neurologic Neurologic: Reports system reviewed and no additional complaints, except as documented Hematologic/Lymphatic On Anticoagulants: No Patient History Medical History Easy bruisability GERD (gastroesophageal reflux disease) Hearing impaired HLD (hyperlipidemia) HTN (hypertension) Meniere's disease Numbness MAYTE on CPAP Osteoarthritis Prostate cancer (~2017) Sciatica Surgical History (Updated 03/27/20 @ 12:17 by FEDERICO Mariano) History of colonoscopy History of esophagogastroduodenoscopy (EGD) History of right hip replacement Hx of appendectomy Hx of bilateral cataract extraction Hx of decompressive lumbar laminectomy Hx of neck surgery Social History household members: spouse Smoking Status: Former smoker alcohol intake: current Smoking Status: Former smoker alcohol intake frequency: 0-2 drinks per day Substance Use Type: marijuana Exam Initial Vital Signs Initial Vital Signs: Vital Signs Temperature 97.9 F 05/12/23 11:21 Pulse Rate 72 05/12/23 11:21 Respiratory Rate 16 05/12/23 11:21 Blood Pressure 163/75 H 05/12/23 11:21 Pulse Oximetry 100 05/12/23 11:21 Oxygen Delivery Method Room Air 05/12/23 11:21 HENMT Head: normal to inspection and normocephalic Ears: TM's normal bilaterally Mouth: oral mucosae normal Neck Lymphatic: No lymphadenopathy Back/Spine/Pelvis Other: Some discomfort and fullness to the left-sided cervical musculature and left upper shoulder. Skin General: no rashes or lesions noted Neuro General: patient alert and patient awake Extrem General: normal to inspection and capillary refill normal Course Vital Signs Vital signs: Vital Signs - 8 hr 05/12/23 11:21 Temperature 97.9 F Pulse Rate 72 Respiratory Rate 16 Blood Pressure 163/75 H Pulse Oximetry 100 Oxygen Delivery Method Room Air MDM - Neck Pain/Injury MDM Narrative Medical decision making narrative: Four days of left-sided cervical muscle strain. I have low suspicion for meningitis. No indication for radiologic studies as I have low suspicion for any fractures. He is no other URI like symptoms. He did try Valium at home but this was 3 years old. His presenting symptoms today are very consistent with muscular etiology. Plan will be to send home with new muscle relaxers. We discussed other conservative measures to include heat and ice and massage. He was given return precautions. He expressed understanding and agreement. Discharge Plan Departure Patient Disposition: Home Clinical Impression: Strain of neck muscle Instructions: DI for Cervical Muscle Strain Activity Restrictions/Additional Instructions: Recommend that you continue with a conservative measures such as heat/ice and also massage and light stretching. Use the muscle relaxers as needed. Return to the emergency department for new or worsening symptoms. Prescriptions: New diazepam [Valium] 5 mg tablet 5 mg PO BID PRN (Reason: muscle spasm) Qty: 10 0RF cyclobenzaprine 10 mg tablet 10 mg PO TID PRN (Reason: muscle spasm) Qty: 21 0RF No Action aspirin 81 mg Tablet,Delayed Release (Dr/Ec) 81 mg PO Q OTHER DAY Qty: 0 multivitamin Capsule 1 cap PO DAILY Qty: 0 [omega 3 krill oil] 300 mg PO Q DAY Qty: 0 omeprazole 20 MG capsule,delayed release(DR/EC) 20 mg PO SEEINSTR Qty: 0 Rx Instructions: 20mg qam, 10mg bedtime cholecalciferol (vitamin D3) [Vitamin D3] 125 mcg (5,000 unit) Tablet 125 mcg PO DAILY Qty: 0 hydrochlorothiazide 25 MG tablet 25 mg PO QDAY Qty: 30 1RF atorvastatin 40 mg Tablet 40 mg PO BEDTIME metoprolol succinate 50 mg Tablet Extended Release 24 Hr 50 mg PO BEDTIME losartan 50 MG tablet 100 mg PO QDAY amlodipine [Norvasc] 5 MG tablet 10 mg PO QDAY ibuprofen [Advil] 200 mg Tablet 200 mg PO BEDTIME PRN (Reason: Pain) gabapentin 300 mg Capsule 300 mg PO BEDTIME PRN (Reason: Pain) acetaminophen 325 mg Tablet 650 mg PO TID Qty: 60 0RF oxycodone 5 mg Tablet 5 mg PO Q3HR PRN (Reason: Pain, Moderate (4-6)) Qty: 40 0RF hydroxyzine pamoate 25 mg Capsule 25 mg PO Q6HR PRN (Reason: Spasms) Qty: 20 0RF Referrals: Rajeev Brown MD [Primary Care Provider] - Stand Alone Forms: Patient Portal/API
[2023-05-12 14:01] VITALS: BP 157/72; PULSE 65; O2SAT 100
== END 2023-05-12 14:07 | disposition home or self-care (01) ==
PROVIDERS: Emergency Provider Emergency Medicine; PCP Internal Medicine
DX: S16.1XXA Strain of muscle, fascia and tendon at neck level, initial encounter (principal)
CPT/HCPCS: 99281

== ENCOUNTER → 2023-12-28 10:29 | Outpatient (CLI) | payer MEDICARE, OTHER, SELFPAY ==
[2020-03-23 11:50] VITALS: BMI 32.0
--- NOTE | 2023-12-28 10:32 | DI.MRI.S_ITS ---
PROCEDURE: MR KNEE RT WO CON INDICATIONS: RIGHT KNEE PAIN TECHNIQUE: Noncontrast sagittal PD fast spin echo and T2 fast spin echo with fat saturation, sagittal 3-D FLASH with fat saturation; coronal T1 spin echo and PD fast spin echo with fat saturation, and axial PD fast spin echo with fat saturation through the knee. COMPARISON: [facility] [place], CR, XR KNEE 4+ VIEWS RIGHT, 12/19/2023, 14:52. FINDINGS: Image quality: Excellent. Menisci: There is complex tear involving the posterior horn body of the medial meniscus. There is horizontal tear involving the anterior horn body of the lateral meniscus. The meniscal root ligaments appear intact. Cruciate ligaments: The anterior and posterior cruciate ligaments appear intact. Medial structures: The medial collateral ligament appears intact. The semimembranosus tendon insertions and meniscocapsular junction appear intact. Visualized portions of the pes anserinus tendons appear normal. No abnormal bursal fluid. Lateral structures: The lateral collateral ligament, long and short heads of the biceps femoris tendon appear intact. The popliteus tendon appears normal. Iliotibial band appears normal. Anterior structures: The quadriceps and patellar tendons appear intact. There is low-grade quadriceps tendinitis and patellar tendinitis. Patellar alignment is normal. No femoral trochlear dysplasia or ventral trochlear prominence. No edema in the infrapatellar fat pad. Bones and cartilage: No bone marrow contusions or fractures. Mild tricompartmental cartilage thinning and fibrillation. Joint space: There is moderate knee joint effusion. There is a small Su's cyst. Normal appearing synovial plicae are incidentally noted. IMPRESSION: 1. Complex tear of the posterior horn and body of the medial meniscus. 2. Horizontal tear of the anterior horn and body of the lateral meniscus. 3. Mild quadriceps tendinitis and patellar tendinitis. 4. Mild tricompartmental cartilage thinning and fibrillation. 5. Moderate knee joint effusion. 6. A small Su's cyst. Dictated by: Candis Cox M.D. on 12/30/2023 at 10:31 Approved by: Candis Cox M.D. on 12/30/2023 at 11:40
== END ==
PROVIDERS: PCP Internal Medicine; Referring Provider Physician Assistant; Visit Provider Physician Assistant
DX: S83.231A Complex tear of medial meniscus, current injury, right knee, initial encounter (principal); S83.271A Complex tear of lateral meniscus, current injury, right knee, initial encounter; X58.XXXA Exposure to other specified factors, initial encounter; M76.51 Patellar tendinitis, right knee; M25.461 Effusion, right knee
CPT/HCPCS: 73721

== ENCOUNTER → 2024-03-11 13:33 | Outpatient (CLI) | payer MEDICARE, OTHER, SELFPAY ==
[2020-03-23 11:50] VITALS: BMI 32.0
--- NOTE | 2024-03-11 13:38 | EKG_ITS ---
[address] [address] Test Date: 2024-03-11 Pat Name: Vincenzo Navarro Department: Room: Gender: Male Early Childhood Director: JASS : 1950 Requested By: Order Number: [id number] Reading MD: José Gallardo MD Measurements Intervals [place] Rate: 75 P: 69 IA: 164 QRS: 17 QRSD: 88 T: 58 QT: 386 QTc: 431 Interpretive Statements Normal sinus rhythm Electronically Signed On 03-12-2024 7:56:47 PDT by José Gallardo MD
--- NOTE | 2024-03-11 13:53 | DI.CT.S_ITS ---
PROCEDURE: CT LUMBAR SPINE WO CON INDICATIONS: SPINAL STENOSIS TECHNIQUE: Noncontrast 3 mm thick sections acquired from the T12 level to the sacrum. Sagittal and coronal reformats were constructed. For radiation dose reduction, the following was used: automated exposure control. COMPARISON: [facility], MR, MR LUMBAR SPINE WITHOUT CONTRAST, 02/24/2024, 13:32. FINDINGS: Image quality: Excellent. Bones: Straightening of the normal lumbar lordosis. Mild levocurvature of the lower lumbar spine. Mild retrolisthesis of L2 on L3 and L3 on L4. Multilevel degenerative changes of the spine with disc height loss, degenerative endplate changes and osteophytosis. This is severe at L3-L4. Multilevel facet arthropathy, most pronounced within the lower lumbar spine. These degenerative changes result in least moderate central canal stenosis at L2-L3, moderate to severe at L3-L4 and moderate at L4-5. Severe bilateral neural foraminal stenosis at L3-L4, L4-5 and L5-S1. No acute vertebral body compression fractures. No suspicious lytic or blastic bony lesions. No pars defects. Soft tissues: No retroperitoneal masses or hematomas. Visualized aorta is normal in caliber. Atherosclerotic vascular calcifications. Right renal peripelvic cysts and nonobstructing calcifications. IMPRESSION: Multilevel degenerative changes of the lumbar spine as described above. Central canal stenosis is most severe at L3-L4 with likely moderate to severe central canal stenosis. Severe bilateral neural foraminal stenosis at L3-L4, L4-5 and L5-S1. Dictated by: Tony Mondragon M.D. on 03/11/2024 at 21:12 Approved by: Tony Mondragon M.D. on 03/11/2024 at 21:22
== END ==
PROVIDERS: PCP Internal Medicine; Referring Provider Orthopaedic Surgery Orthopaedic Surgery of the Spine; Visit Provider Orthopaedic Surgery Orthopaedic Surgery of the Spine
DX: Z01.818 Encounter for other preprocedural examination (principal); M48.062 Spinal stenosis, lumbar region with neurogenic claudication; M48.07 Spinal stenosis, lumbosacral region; M47.816 Spondylosis without myelopathy or radiculopathy, lumbar region; N28.1 Cyst of kidney, acquired; N20.0 Calculus of kidney
CPT/HCPCS: 72131; 93005; 93010

== ENCOUNTER 2024-04-06 05:57 | Inpatient (IN) | payer MEDICARE, OTHER, SELFPAY ==
[2020-03-23 11:50] VITALS: BMI 32.0
[2024-03-31 13:34] VITALS: BMI 32.1
[2024-04-02 00:02] VITALS: BP 131/64; PULSE 76; RESP 10; TEMP 37.9; O2SAT 97
[2024-04-06] VITALS (14 sets, daily range): BP systolic 100–140; BP diastolic 52–93; PULSE 70–89; RESP 11–21; TEMP 36.1–36.9; O2SAT 92–100; BMI 31.7
[2024-04-06] MEDS: LACTATED RINGERS 1,000 ML 42 ML IV ×2 (07:05→10:08)
[2024-04-06] MEDS: ACETAMINOPHEN 325 MG TABLET 975 MG PO (07:05)
--- NOTE | 2024-04-06 07:38 | PM.PREOP ---
Pre-operative Note Interval Note History & Physical reviewed/Exam performed by Physician: Yes Changes to H&P: No
[2024-04-06] MEDS: CEFAZOLIN 2 GM/100 ML PREMIX 100 ML IV ×3 (08:04→23:35)
--- NOTE | 2024-04-06 08:18 | SUR.OPER ---
Prone on spine table, head in foam head support, padded chest and pelvic supports, gel pad at knees, lower legs supported by pillows; nipples, genitalia and toes free of pressure, arms secured on foam padded arm boards at <90 degrees abduction. Tape over blanket at thigh secured to table.
[2024-04-06] MEDS: BUPIVACAINE LIPOSOME 266 MG/20 ML VIAL INJ (08:27)
[2024-04-06] MEDS: BUPIVACAINE 0.25% (PF) 60 ML, EPINEPHrine 0.15 MG INJ (08:27)
--- NOTE | 2024-04-06 11:30 | DI.RAD.S_ITS ---
PROCEDURE: XR LUMBAR SPINE 2-3V INDICATIONS: L4-5, L5-S1 TLIF TECHNIQUE: 6 fluoroscopic images of the lumbar spine were acquired. COMPARISON: None. FINDINGS/IMPRESSION: Ongoing L4-L5 and L5-S1 TLIF. Dictated by: Giovanni Moreno M.D. on 04/07/2024 at 13:18 Approved by: Giovanni Moreno M.D. on 04/07/2024 at 13:20
--- NOTE | 2024-04-06 12:31 | PM.OP.1 ---
Operative Date/Time/Diagnoses Date of procedure: 04/06/24 Time of procedure: 07:40 Pre-op diagnosis: 1. L4-5, L5-S1 history of laminectomies with epidural scarring 2. L4-5, L5-S1 bilateral foramen stenosis with radiculopathy 3. L3-4 spinal stenosis with neurogenic claudication Post-op diagnosis: same Procedure & Clinicians Procedure: 1. L4-5, L5-S1 Postero-lateral and posterior interbody fusion 2. L4-5, L5-S1 interbody cage placement. 3. L4-5, L5-S1 decompressive laminectomy with bilateral facetecomies 4. L4-5, L5-S1 Posterior segmental instrumentation 5. L3-4 hemilaminectomy 6. [place] of bone marrow from iliac crest 7. Utilization of microsurgical technique and operating microscope 8. Utilization of robotic assisted navigation Same procedure as scheduled: Yes Indications: Patient has been having chronic back pain and worsening lumbar radiculopathy and symptoms of neurogenic claudication. Patient had prior L3-4 L4-5 laminectomy 20 years ago with worsening lower extremity pain weakness and numbness. Patient was found have severe L4-5 L5-S1 foraminal stenosis with L3-4 central stenosis correlating with patient's radiculopathy as well as neurogenic claudication. Patient failed multiple conservative management with worsening pain weakness and numbness in her lower extremity. Patient has been having difficulty performing activity of daily living. After discussing risks benefits of treatment options, patient elected proceed with surgery. Surgeon: Mika Kumar Chronic Condition Nurse: Brittany Stone Click Yes if Unassisted: No Anesthesia Type: General Operative Notes Closure Type: primary Specimen(s): none sent Prosthetic devices, grafts, tissues, transplants, or devices: Globus CREO MIS screws, Rise cages Applied: catheter Estimated Blood Loss (mL): 150 Blood products transfused: none Procedure in detail: Patient was seen in the preoperative area. Risks and benefits of the surgery was discussed with the patient. Informed consent was obtained from the patient and placed in the chart. Surgical site was marked. Patient was taken to the operative room. General anesthesia was administered. Prophylactic antibiotic was given to the patient less than 30 min before the incision was made. Patient was placed into a prone position on the Neal table. Patient's back was then prepped and draped in the sterile fashion. Time-out was performed at this time. After patient was prepped and draped, patient's PSIS was palpated and marked bilaterally. Small 1 cm incision was made over the PSIS for placement of the reference probes. Two trocar was placed into the PSIS 1 on each side. The reference probe was attached to the trocar of the reference apparatus. At this time the C-arm imaging was used to confirm AP and lateral of L4-L5, L5-S1 vertebrae and merged the C-arm imaging using the AppNexus navigation system with the CT of the lumbar spine. After successful merging was completed and confirmed, skin marker was used to mehran out the skin incision using the Vital Insight robotic arm. Bilateral incision was made at this time. Pre templated trajectory was used and guided using the AppNexus navigation system for bilateral L4, L5, S1 pedicle screw placement. This was done by using the robotic arm to guide the high-speed bur to make a cortical entry point. Next a drill was placed also using the robotic arm and guided using the navigation system drilling partially through bilateral L4, L5 and S1 pedicles. Next L4, L5, S1 pedicle screws it was pre templated and measured was placed onto the power motor driver and inserted into the pedicles bilaterally. After all 6 screws were placed C-arm imaging was taken of both AP and lateral to confirm the placement. Excellent placement of the screws were confirmed and a matched precisely with the pre planned screw placement using the navigation system. MARs retractor was inserted using Vital Insight nagivation guidence. Globus MARS retractors was placed inside the incision and docked onto the L4 and L5 lamina. Using microsurgical technique and operating microscope, a L4, L5 laminectomy and L4-5, L5-S1 facetectomy was performed using a Kerrison rongeur. Patient was found have severe lateral recess and neural foramen stenosis which was fully decompressed after the laminectomy facetectomy. More than 75% of the facets were removed during the process of decompression rendering L4-5, L5-S1 level grossly unstable and required a fusion procedure at the same time. The disc space at L4-5, L5-S1 was identified, and a total diskectomy was performed at L4-5, L5-S1 level. The endplates were decorticated using a rasp and shaver. The total diskectomy and decortication was performed at L4-5, L5-S1 level in order to to accomplish a L4-5, L5-S1 fusion. The local bone from the laminectomy and facetectomy was saved for local bone grafting. After the total diskectomy and decortication was completed, Trifecta bone graft material was combined with local bone that was harvested earlier. At this time, a separate skin is incision was made over the iliac crest. A Jamshidi needle was inserted into the iliac crest through a separate skin incision. 5 cc of bone marrow aspiration was obtained through the separate skin incision using a Jamshidi needle from the iliac crest. The bone marrow aspiration was combined with local bone and the Trifecta bone grafting material. The bone grafting material was placed into the L4-5, L5-S1 interbody space along with a expandable cage. The cage was expanded to its maximum height using the torque limiting screwdriver. The disc preparation as well as the cage insertion were also performed under navigation guidance. After the cage was placed, AP and lateral C-arm imaging was taken to confirm placement of the cage and excellent position was confirmed. The MARS retractor was heard redirected over the L3-4 interval. Using microsurgical technique and operating microscope a left-sided hemilaminectomy was performed using Kerrison rongeur and undercutting the L3-4 facet to further decompress the lateral recess. Globus MARS retractor was inserted and docked onto the L4-5, L5-S1 posterolateral gutter on the right side. Using the power drill, posterior-lateral decortication was performed at L4-5, L5-S1 level until bleeding cortical bone was identified. The remaining bone grafting material was placed into the L4-5, L5-S1 posterior lateral gutter he order to accomplish posterolateral fusion at the L4-5, L5-S1 level. At this time the tulips were attached to the L4, L5, S1 pedicle screw shanks. After measuring the length of the rods, they were inserted into the tulips of the pedicle screws and locked in place using locking caps and torque limiting screwdriver bilaterally. Total 6 caps and 2 titanium rods was used in order to complete the posterior instrumentation construct. After all the hardware was placed, and confirmed with AP and lateral C-arm imaging, the wound was then irrigated with sterile normal saline and packed with Ray-Jerry gauze for 3 min to accomplish hemostasis. After the gauze was removed the deep fascia was closed with #1 Vicryl suture. The subcutaneous layer was closed with 2-0 Vicryl. The skin was closed with skin ash. Patient tolerated the procedure well. There were no complications. Neuro monitoring system was used to monitor patient's neurologic status throughout entire procedure. There was no disturbance of the neural monitoring signals throughout the case. The Operation could not have been safely performed without compromising the technical result or length of the procedure, without the assistance of a skilled assembler surgical garment. The assembler surgical garment was medically necessary for proper positioning, retraction and manipulation of instruments, proper exposure, surgical preparation, and manipulation of tissue. Complications: none Post-operative Condition: stable Disposition: PACU Plan for aftercare: Admit to inpatient hospital
[2024-04-06] MEDS: hydrOXYzine 50 MG/ML INJ IM (12:55)
--- NOTE | 2024-04-06 13:19 | SUR.PHASEI ---
Pt transferred to floor by Shahriar Griffin
[2024-04-06] MEDS: LACTATED RINGERS 1,000 ML 125 ML IV ×2 (13:49→22:16)
[2024-04-06] MEDS: OXYCODONE IR 5 MG TABLET PO ×2 (17:09→23:40)
[2024-04-06] MEDS: ACETAMINOPHEN 325 MG TABLET 650 MG PO (17:09)
[2024-04-06] MEDS: OXYCODONE IR 10 MG TABLET PO (18:42)
[2024-04-06] MEDS: ATORVASTATIN 20 MG TABLET 80 MG PO (20:26)
[2024-04-06] MEDS: SENNOSIDES 8.6 MG TABLET 17.2 MG PO (20:26)
[2024-04-06] MEDS: LOSARTAN 50 MG TABLET 100 MG PO (20:26)
[2024-04-06] MEDS: DOCUSATE 100 MG CAPSULE PO (20:26)
[2024-04-07] MEDS: OXYCODONE IR 10 MG TABLET PO ×3 (02:52→13:15)
[2024-04-07] MEDS: PANTOPRAZOLE DR 20 MG TABLET PO (05:40)
[2024-04-07 05:44] LABS: Hematocrit 30.2 % (41-53); Hemoglobin 10.2 g/dL (13.5-17.5)
--- NOTE | 2024-04-07 07:24 | PM.DS.1 ---
History of Present Illness History of Present Illness Date Patient Seen: 04/07/24 Time Patient Seen: 07:24 Chief complaint: Low back pain Narrative: Patient states his low back pain was severe earlier this morning but is now more moderate in nature. Patient states he was out of bed yesterday walking in halls. Has his home available to assist him. Otherwise without complaints this morning. Discharge Providers Provider Date of admission: 04/06/24 05:57 Discharge Date: 04/07/24 Primary care physician: Rajeev Brown MD Consults: 04/06/24 13:20 Consult to Occupational Therapy Evaluate & Treat Comment: Physician Instructions: Evaluate and treat Consult to Physical Therapy Evaluate & Treat Comment: Physician Instructions: Evaluate and Treat Discharge provider: Kevyn Rasmussen PA-C Summary Hospital Course Discharge Diagnosis: 1. L4-5, L5-S1 history of laminectomies with epidural scarring 2. L4-5, L5-S1 bilateral foramen stenosis with radiculopathy 3. L3-4 spinal stenosis with neurogenic claudication Hospital Course: 1. L4-5, L5-S1 Postero-lateral and posterior interbody fusion 2. L4-5, L5-S1 interbody cage placement. 3. L4-5, L5-S1 decompressive laminectomy with bilateral facetecomies 4. L4-5, L5-S1 Posterior segmental instrumentation 5. L3-4 hemilaminectomy 6. Premium of bone marrow from iliac crest 7. Utilization of microsurgical technique and operating microscope 8. Utilization of robotic assisted navigation Same procedure as scheduled: Yes Indications: Patient has been having chronic back pain and worsening lumbar radiculopathy and symptoms of neurogenic claudication. Patient had prior L3-4 L4-5 laminectomy 20 years ago with worsening lower extremity pain weakness and numbness. Patient was found have severe L4-5 L5-S1 foraminal stenosis with L3-4 central stenosis correlating with patient's radiculopathy as well as neurogenic claudication. Patient failed multiple conservative management with worsening pain weakness and numbness in her lower extremity. Patient has been having difficulty performing activity of daily living. After discussing risks benefits of treatment options, patient elected proceed with surgery. Surgeon: Mika Kumar Manager Applied: Brittany Stone Click Yes if Unassisted: No Anesthesia Type: General Operative Notes Closure Type: primary Specimen(s): none sent Prosthetic devices, grafts, tissues, transplants, or devices: Globus CREO MIS screws, Rise cages Applied: catheter Estimated Blood Loss (mL): 150 Blood products transfused: none Patient admitted to the hospital for the above-mentioned procedure. Patient consented to the same. Patient at lumbar fusion April 06, 2020 14. Patient back in his room recovering well as in stable condition. Marginal pain management. Continue work on multimodal pain management today. Patient to mobilize with physical therapy. Limit bending, twisting, lifting. Patient will work with Physical therapy this morning. Patient will be discharged home after physical therapy if safe for home environment Status at Discharge Cognitive/behavioral status at discharge: at baseline, oriented Functional status at discharge: uses cane/walker Overall status at discharge: patient is progressing back to baseline Exam Vital Signs (past 8 hours): - 04/06/24 23:40 Temperature 98.4 F Pulse Rate 74 Respiratory Rate 17 Blood Pressure 115/62 Pulse Oximetry 95 Oxygen Flow Rate 0 Oxygen Delivery Method Room Air Oxygen Flow Rate 0 Narrative Exam Narrative: 73-year-old male resting comfortably in bed in no apparent distress. Neurovascular status is intact bilateral lower extremities. Const General: cooperative and comfortable Nutritional Appearance: average body habitus Orientation: alert Resp Effort & Inspection: normal respiratory effort and able to speak in complete sentences Objective Labs 04/07/24 05:18 Labs: Laboratory Results - last 24 hr 04/07/24 05:18 Hgb 10.2 L Hct 30.2 L PFSH Medical History History of COVID-19 Meniere's disease Easy bruisability Osteoarthritis Prostate cancer (~2017) HLD (hyperlipidemia) MAYTE on CPAP Hearing impaired Numbness Sciatica HTN (hypertension) GERD (gastroesophageal reflux disease) Surgical History Hx of eye surgery (01/2024) History of total right hip replacement (03/23/20) History of right hip replacement Hx of decompressive lumbar laminectomy Hx of appendectomy History of colonoscopy History of esophagogastroduodenoscopy (EGD) Hx of bilateral cataract extraction Hx of neck surgery Social History household members: spouse Smoking Status: Former smoker alcohol intake: current Discharge Assessment & Plan Assessment and Plan Assessment: Patient progressing as expected Plan of Treatment: Multimodal pain management Mobilize with physical therapy, limit bending, twisting, lifting Discharge home today after physical therapy if safe for home environment Discharge Plan Discharge orders & Medications Discharge Orders: Discharge (Order); Ordered 04/07/24 Ordered By: Kevyn Rasmussen Prescriptions: Continued multivitamin Capsule 1 cap PO DAILY Qty: 0 omeprazole 20 MG capsule,delayed release(DR/EC) 20 mg PO SEEINSTR Qty: 0 cholecalciferol (vitamin D3) [Vitamin D3] 125 mcg (5,000 unit) Tablet 125 mcg PO DAILY Qty: 0 hydrochlorothiazide 25 MG tablet 25 mg PO QDAY Qty: 30 1RF metoprolol succinate 50 mg Tablet Extended Release 24 Hr 50 mg PO DAILY losartan 50 MG tablet 100 mg PO BEDTIME amlodipine [Norvasc] 5 MG tablet 10 mg PO QDAY diazepam [Valium] 5 mg tablet 5 mg PO BID PRN (Reason: muscle spasm) Qty: 10 0RF rosuvastatin 40 mg Tablet 40 mg PO BEDTIME Discontinued acetaminophen 325 mg tablet 650 mg PO BEDTIME Follow up/Referrals: Rajeev Brown MD [Primary Care Provider] - Mika Kumar MD [Physician] - 04/23/24 2:00 pm (Follow up w/ Brittany Stone PA-C, at [facility] in [place].) Diet/Activity/Treatments Diet: Diet as Tolerated Activity: No deep bending or twisting at the waist. No lifting more than 10 pounds. Cold/Heat Therapy: Heating pad to low back as needed for spasm. Skin/Wound/Dressing Care Report to your healthcare provider any signs of infection, such as:: chills, fever, night sweats, unusual drainage and unusual redness Dressing: May shower. Keep dressings as dry as possible. If dressings become wet or dirty, may remove and replace with clean, dry gauze. No bathing or otherwise soaking incisions. Do not apply any creams, lotions, or ointments to incisions. Visit Report/Discharge Packet Instructions: DI for Transforaminal Lumbar Interbody Fusion Stand Alone Forms: Patient Portal/API, Stroke Signs & Symptoms, Surgery Discharge Discharge Data Primary Care Provider: Rajeev Brown Quality VTE Deep Vein Thrombosis/Pulmonary Embolism Present on Admission: No
[2024-04-07 08:23] VITALS: BP 131/64
[2024-04-07] MEDS: AMLODIPINE 5 MG TABLET 10 MG PO (08:23)
[2024-04-07] MEDS: hydroCHLOROthiazide 25 MG TABLET PO (08:23)
[2024-04-07] MEDS: DOCUSATE 100 MG CAPSULE PO ×2 (08:23→20:10)
[2024-04-07] MEDS: METOPROLOL ER 50 MG TABLET PO (08:23)
[2024-04-07] MEDS: CHOLECALCIFEROL (VITAMIN D3) 5,000 UNIT TABLET 5000 UNIT PO (08:23)
[2024-04-07] MEDS: MULTIVITAMIN 1 TABLET 1 TAB PO (08:23)
--- NOTE | 2024-04-07 08:49 | OT.IPNOTE ---
Attempted OT eval and pt states just got his pain meds and requesting to rest for 45 minutes before being seen for evals. To check on the pt later.
[2024-04-07 08:53] VITALS: PULSE 70
--- NOTE | 2024-04-07 09:10 | PT.IIE ---
Current Diagnoses Spinal stenosis, lumbar region without neurogenic claudication (04/06/24) Spinal stenosis, lumbar region with neurogenic claudication (04/06/24) Postlaminectomy syndrome, not elsewhere classified (04/06/24) Surgery Performed Operation Date: 04/06/24 07:45 Actual Procedures p L4-L5. [id number] Interbody Fusion/Laminotomy WITH POSTERIOR INSTRUMENTATION, L3-4 LAMINECTOMY(Not Applicable) - Mika Kumar MD Surgical History (Last Reviewed 04/07/24 @ 07:27 by Kevyn Rasmussen PA-C) History of colonoscopy History of esophagogastroduodenoscopy (EGD) History of right hip replacement History of total right hip replacement (03/23/20) Hx of appendectomy Hx of bilateral cataract extraction Hx of decompressive lumbar laminectomy Hx of eye surgery (01/2024) Hx of neck surgery Medical History (Last Reviewed 04/07/24 @ 07:27 by Kevyn Rasmussen PA-C) Easy bruisability GERD (gastroesophageal reflux disease) Hearing impaired History of COVID-19 HLD (hyperlipidemia) HTN (hypertension) Meniere's disease Numbness MAYTE on CPAP Osteoarthritis Prostate cancer (~2016) Sciatica Physical Therapy Inpatient Evaluation/Re-Eval M1 PT/OT-IP Prior Functional Status Start: 04/07/24 11:57 Freq: NEEDED Status: Active Protocol: Document 04/07/24 09:10 AB (Rec: 04/07/24 12:12 AB [id number]) Medical Review Prior Functional Status Medical History Reviewed Yes Communication able to make needs known Mobility and Gait pt stated that he was iindpeendent with all mobilities and ambulation without AD Activities of Daily Living and IADL's Per OT note: Pt able to use LB dressing equipment for ADL needs as pt has been using it since his R CINDY 03/23/20. Social History Household Members spouse Living Arrangements House Number of Floors (Floors) One Floor Number of Stairs To Enter/Railing? 1 platform step to enter the house Home Environment High Toilet,Walk in Shower Home Equipment Front Wheel Walker,Straight Cane,Hand Held Shower,Grab Bars Near Toilet,Grab Bars In Shower Additional Social History Comment pt stated that spouse has limited ability to assist pt pt has an adjustable bed M2 PT-IP Current Condition Start: 04/07/24 11:57 Freq: NEEDED Status: Active Protocol: Document 04/07/24 09:10 AB (Rec: 04/07/24 12:12 AB [id number]) Physical Therapy Current Condition Current Condition Evaluation Date 04/07/24 Treatment Diagnosis s/p L4-5, L5S1 TLIF; difficulty in walking Onset Date 04/06/24 M3 PT-IP Subjective Start: 04/07/24 11:57 Freq: NEEDED Status: Active Protocol: Document 04/07/24 09:10 AB (Rec: 04/07/24 12:12 AB [id number]) Subjective Physical Therapy Visit Type Type Initial Evaluation Visit Start Time 09:10 Visit Stop Time 09:55 Number of LABORER Visits 0 Physical Therapy Visit Comments Patient Comments agreeable to do PT Therapy Pain Assessment Pain When Pain Assessed At Rest Pain Present Pain Present Pain Reported Location Back Intensity 4 Scale Used Numeric (0 - 10) Pain Management Techniques Distraction,Modification of Treatment,Re-positioning, Timing of Activity with Medications M4 PT-IP Mobility and Gait Start: 04/07/24 11:57 Freq: NEEDED Status: Active Protocol: Document 04/07/24 09:10 AB (Rec: 04/07/24 12:12 AB [id number]) PT-Bed Mobility Assessment Rolling Type of Rolling Log Rolling Level of Assist Standby Assistance Supine to Sit Supine to Sit Minimal Assistance PT-Transfer Assessment Sit to and From Stand Sit to and from Stand Contact Guard Assistance,1 Person Assistance,Use of Upper Extremities Equipment Transfer Assistive Device Gait Belt,Front Wheeled Walker Orthotic/Prosthetic Devices or Brace: No Transfers Transfer Destination Chair Transfer Technique ambulated Transfer Ability Level of Assist Contact Guard Assistance,1 Person Assistance,Use of Upper Extremities Comments Mobility Comments pt supine in bed and agreed to do PT. obtained PLOF and homse set up from pt. post-op folder provided and reviewed contents. educated pt regarding back precautions and log roll bed mobility. pt completed supine to sit log roll min A and cues. able to sit on EOB SBA. completed sit to stand CGA and cues. pt ambulated in room using FWW ~ 30 ft. pt sat on the chair. stated that he feels unsteady on his LE. educated pt on doing platform step. pt ambulated towards the platform step using FWW CGA. completed up/down platform step CGA to min A and cues using FWW. pt ambulated back to his room using FWW CGA. pt sat on his chair. informed pt regarding caregiver training and pt declined. stated that his spouse already told him that she will not be able to assist him much and that he wants to go to SNF rehab and it will not make a difference if we do caregiver training or not. pt also refused further bed mobility training and stated that if he goes to SNF then, he does not need to practice on his log roll bed mobility. stated that he does not feel like he is ready to go home and wants to go to SNF. positioned pt on the chair. call light and table placed within reach. informed pulmonary care nurse regarding pt's desire to go to SNF. also informed ortho PA. Gait Assessment Gait Gait Assistance Required: Contact Guard Assist Distance (Feet) 40 Able to Maintain Weight Bearing Status Yes During Gait Assistive Devices Assistive Device Gait Belt,Front Wheeled Walker Orthotic/Prosthetic Devices or Brace: No Gait Deviations General Gait Pattern Ataxic,Decreased Stride Length ,Decreased Feet Clearance Factors Limiting Gait Function Factors Limiting Gait Function Decreased Activity Tolerance, Decreased Strength,Limited Range of Motion,Pain,Poor Balance,Poor Safety Awareness Stair Climbing Assessment Evaluation Level of Assist On Stairs Contact Guard Assistance, Minimal Assistance Devices Stair Climbing Assistive Devices Front Wheel Walker Technique/Endurance Stair Climbing Technique Step to Step Number of Steps Climbed 1 Query Text: Stair Climbing Set # Repetitions (reps) 2 PT-Balance Assessment Sitting Balance and Reactions Static Sitting Balance Ability Normal Dynamic Sitting Balance Ability Good Standing Balance and Reactions Static Standing Balance Ability Fair Dynamic Standing Balance Ability Fair Device Used FWW M5 PT-IP Objective Assessments Start: 04/07/24 11:57 Freq: NEEDED Status: Active Protocol: Document 04/07/24 09:10 AB (Rec: 04/07/24 12:12 AB [id number]) Orientation Orientation/Cognition Level of Alertness Alert Orientation Name,Place,Situation Language Function Ability Hard of Hearing Safety Awareness Decreased Safety Awareness Memory Description No Deficits Noted Gross Range of Motion Lower Extremity ROM Assessment Within Functional Limits Strength Lower Extremity Strength Hip 3+/5 Knee 4-/5 Sensation Assessment Sensation Sensation Description Numbness Comments Sensation Comments B feet chronic numbness/ neuropathy per pt Muscle Tone Muscle Tone WNL Yes M6 PT-IP Treatment Start: 04/07/24 11:57 Freq: NEEDED Status: Active Protocol: Document 04/07/24 09:10 AB (Rec: 04/07/24 12:12 AB [id number]) Physical Therapy Treatment Education Education Provided Precautions,Weight Bearing Status,Post-Op Packet,Safety M7 PT-IP Assessment and Plan Start: 04/07/24 11:57 Freq: NEEDED Status: Active Protocol: Document 04/07/24 09:10 AB (Rec: 04/07/24 12:12 [id number]) PT Summary Assessment and Plan Potential Rehabilitation Potential Fair Status of Condition at Evaluation Stable Summary Impairments Pain,ROM,Strength,Balance, Coordination,Sensation,Tone, Cognition,Bed Mobility, Transfers,Gait,Activity Tolerance Assessment Summary pt is a 73 y/o M w/p L4-5, L5S1 TLIF POD 1. pt has back precautions. pt requiring CGA to mn A with bed mobility, CGA with ambulation using FWW and CGA to min A with stair climbing. pt lives with spouse and stated that spouse will not be able to assist him . pt wants to go to SNF. will continue to assess progress. Goals Bed Mobility Goal Independent Transfer Goal Independent,Front Wheeled Walker Gait Goal Independent,Front Wheel Walker Gait Distance 200 Other Goals up/down 1 platform step using fWW mod I Days to Meet Goals 5 Frequency of Treatment Frequency Of Treatment Twice a Day Treatment Plan Physical Therapy Treatment Plan Bed Mobility Training,Transfer Training,Gait Training, Therapeutic Exercise,Balance Retraining,Post Op Education, Discharge Planning,Hot or Cold Pack,Neuromuscular Re-ed, Coordination Retraining,Manual Therapy Precautions Lumbar Precautions Log Roll,No Twisting,Limit Bending,Lifting Restriction of 10 lbs,Gait Belt above Incisional Area Recommendations To Nursing Amount of Assist Needed 1 Person Assist Discharge Recommendations PT Discharge Recommendations Home vs SNF Transportation Needs at Discharge Private Vehicle
--- NOTE | 2024-04-07 10:31 | OT.IP.EVAL ---
Current Diagnoses Spinal stenosis, lumbar region without neurogenic claudication (04/06/24) Spinal stenosis, lumbar region with neurogenic claudication (04/06/24) Postlaminectomy syndrome, not elsewhere classified (04/06/24) Surgery Performed Operation Date: 04/06/24 07:45 Actual Procedures p L4-L5. [id number] Interbody Fusion/Laminotomy WITH POSTERIOR INSTRUMENTATION, L3-4 LAMINECTOMY(Not Applicable) - Mika Kumar MD Past Medical History (Last Reviewed 04/07/24 @ 07:27 by Kevyn Rasmussen PA-C) Easy bruisability GERD (gastroesophageal reflux disease) Hearing impaired History of COVID-19 HLD (hyperlipidemia) HTN (hypertension) Meniere's disease Numbness MAYTE on CPAP Osteoarthritis Prostate cancer (~2016) Sciatica Surgical History (Last Reviewed 04/07/24 @ 07:27 by Kevyn Rasmussen PA-C) History of colonoscopy History of esophagogastroduodenoscopy (EGD) History of right hip replacement History of total right hip replacement (03/23/20) Hx of appendectomy Hx of bilateral cataract extraction Hx of decompressive lumbar laminectomy Hx of eye surgery (01/2024) Hx of neck surgery Occupational Therapy Inpatient Evaluation/Re-Eval M1 PT/OT-IP Prior Functional Status Start: 04/07/24 10:31 Freq: NEEDED Status: Active Protocol: Document 04/07/24 10:32 [facility] (Rec: 04/07/24 10:51 [facility] [id number]) Medical Review Prior Functional Status Communication Independent Mobility and Gait Per pt did not use a device but would wobble around. Activities of Daily Living and IADL's Pt able to use LB dressing equipment for ADL needs as pt has been using it since his R CINDY 03/23/20. Prior Functional Level (Other details) Pt states his able to assist but not able to do any lifting. Social History Household Members spouse Living Arrangements House Number of Floors (Floors) Two Floors Number of Stairs To Enter/Railing? Pt has a threshold to enter the house and able to stay on the main level. Home Environment Standard Height Toilet,Walk in Shower Home Equipment Front Wheel Walker,Four Wheel Walker,Straight Cane,Hand Held Shower,Long Handled Shoe Horn ,Outpatient Psychiatrist,Sock Aid,Grab Bars Near Toilet,Grab Bars In Shower Additional Social History Comment Pt has an adjustable bed. Pt has a toilet paper aid. M2 OT-IP Current Condition Start: 04/07/24 10:31 Freq: Status: Active Protocol: Document 04/07/24 10:32 [facility] (Rec: 04/07/24 10:51 [facility] [id number]) Occupational Therapy Current Condition Current Condition Evaluation Date 04/07/24 Treatment Diagnosis S/P L4-5, L5-S1 TLIF, L3-4 hemilaminectomy Diagnosis Onset Date 04/06/24 Post Operative Precautions Lumbar Precautions Log Roll,No Twisting,Limit Bending,Lifting Restriction of 10 lbs,Gait Belt above Incisional Area M3 OT- IP Subjective and Pain Start: 04/07/24 10:31 Freq: Status: Active Protocol: Document 04/07/24 10:32 [facility] (Rec: 04/07/24 10:51 [facility] [id number]) OT- Subjective Occupational Therapy Visit Type Type Initial Evaluation Visit Start Time 10:05 Visit Stop Time 10:31 Occupational Therapy Visit Comments Patient Comments Pt agreed to get up to brush his teeth. Patient/Caregiver Goals Pt wants to go to skilled rehab. OT Pain Assessment Pain When Pain Assessed At Rest Pain Present Pain Present Pain Reported Location Back Intensity 5 Scale Used Numeric (0 - 10) M4 OT- IP ADL's Start: 04/07/24 10:31 Freq: Status: Active Protocol: Document 04/07/24 10:32 [facility] (Rec: 04/07/24 10:51 [facility] [id number]) OT [id number] General Evaluation Self-Feeding Ability Independent OT ADL-Grooming General Evaluation Grooming Ability Standby Assistance Areas Needing Assistance Retrieving/Set-up of Grooming Items Comments OT Grooming Comments Pt able to do while standing at the sink with FWW after set -up. VC to keep the FWW in front of him. OT ADL-Oral Care General Eval Oral Care Ability Independent,Standby Assistance Comments Oral Care Comments VC to hinge at his hips or just spit into a cup to best follow his back precautions. OT ADL-Dressing Comments OT Dressing Comments Pt has all LB dressing equipment at home and uses it prior. OT ADL-Toileting Comments OT Toileting Comments Educated to use the FWW while standing to urinate over the toilet or sit down especially at night. OT ADL-Bathing Comments OT Bathing Comments NOt performed. Pt will benefit from a shower chair and educated of covering the dressing for showering needs. M5 OT- IP IADL's Start: 04/07/24 10:31 Freq: Status: Active Protocol: Document 04/07/24 10:32 [facility] (Rec: 04/07/24 10:51 [facility] [id number]) OT-Instrumental Activities of Daily Living Home Safety Awareness Awareness of Need for Assistance at Home Good Awareness Ability to Problem Solve Emergency Able to Problem Solve Situations Meal Preparation Meal Preparation Caregiver Provides Assist Branner Machine Tender Branner Machine Tender Caregiver Provides Assist M6 OT- IP Functional Cognition Start: 04/07/24 10:31 Freq: Status: Active Protocol: Document 04/07/24 10:32 [facility] (Rec: 04/07/24 10:51 [facility] [id number]) Cognitive Factors Limiting Selfcare Function Cognitive Ability Level of Alertness Alert Patient Orientation Name,Age,Birthday,Month,Date, Year,Day of Week,Place, Situation Attention Span Ability Capable of Focused Attention, Capable of Sustained Attention Ability to Follow Commands Able to Follow One Step Commands Safety Awareness Decreased Recall of Precautions Cognitive Comments Cognitive Assessment Comments Pt not able to recall all his precautions initially. Pt able to follow the precautions for ADL and mobility needs. Pt is very nervous of going home and states feels very unsteady on his feet and afraid that his will not be able to pick him up if he falls. Pt wanting to go to skilled rehab . Able to go over techniques of car transfer with pt. OT- Vision and Hearing OT- Hearing Assessment OT- Hearing Assessment Hearing Impaired,Use of Hearing Aids OT- Vision Assessment Visual Acuity Glasses All The Time Visual Attentiveness WFL Occular Pursuits WFL Vision Assessment Comments Pt's hearing aids not in the hospital. M7 OT- IP Mobility and Balance Start: 04/07/24 10:31 Freq: Status: Active Protocol: Document 04/07/24 10:32 [facility] (Rec: 04/07/24 10:51 [facility] [id number]) OT-Transfer Assessment Sit to and From Stand Sit to and from Stand Standby Assistance,Contact Guard Assistance Transfers Transfer Ability Standby Assistance Technique Transfer Destination Chair Transfer Technique Stand Step Pivot Devices Transfer Assistive Devices Gait Belt,Front Wheeled Walker Comments Mobility Comments CGA to close SBA to stand and vc for proper technique for transitions. OT- Balance Assessment Sitting Balance and Reactions Static Sitting Balance Ability Normal Dynamic Sitting Balance Ability Good Standing Balance and Reactions Static Standing Balance Ability Good Dynamic Standing Balance Ability Good M8 OT- IP Objective Assessments Start: 04/07/24 10:31 Freq: Status: Active Protocol: Document 04/07/24 10:32 [facility] (Rec: 04/07/24 10:51 [facility] [id number]) OT Strength Comments Strength Comments WFL for needs M9 OT- IP Assessment and Plan Start: 04/07/24 10:31 Freq: Status: Active Protocol: Document 04/07/24 10:32 [facility] (Rec: 04/07/24 10:51 [facility] [id number]) OT Summary Assessment and Plan Potential Rehabilitation Potential Good Analytic Complexity at Evaluation Low Summary OT Impairments Pain,Balance,Functional Mobility,Dressing,Toileting, Bathing,Toilet Transfers, Shower Transfers Progress Towards Goals Progressing Toward Goals Assessment Summary Pt low complexity and main barriers are pain, and that pt feeling like he is not safe to go home even though pt is moving well with CGA to close SBA with the FWW. Pt will benefit form a shower chair at home and assist for needs. Pt to go home with assist when medically stable. Pt however is wanting to go to skilled rehab at this time. Goals Grooming Goal Independent Dressing Goal Independent,Long Handled Shoe Horn,Outpatient Psychiatrist,Sock Aid Toileting Goal Independent Bathing Goal Minimal Assistance Toilet Transfer Goal Independent Shower Transfer Goal Standby Assistance Days to Meet Goals 5 Frequency of Treatment Other frequency 5x/week Treatment Plan OT Treatment Plan ADL Training,Functional Mobility,Patient/Family Education,Discharge Planning Other Treatment Recommendations and Next shower Treatment Focus Discharge Recommendations OT Discharge Recommendations Home with Assistance,Home vs SNF Other Discharge Recommendations Pt wanting to go to skilled rehab as per pt does not feel safe to go home at this time. Home Equipment Needs shower chair Transportation Needs at Discharge Private Vehicle
--- NOTE | 2024-04-07 11:08 | CM.DANOTE ---
Initial DCP Assessment Note Pt is a 73 yo male, resident of [place], now POD#1 from spinal surgery by Dr Kumar PCP: Rajeev Brown Payer: [employer] Reviewed chart, pt discussed w/PT and Ortho PA Grady. Patient has been cleared for return home w/spouse although patient is stating much apprehension about his 's ability to assist him once home. Met w/patient to review dispo plan. Patient reports that his will soon be in and then caregiver training can be done. Patient requests this HOME HELP AIDE return after caregiver training to discuss discharge plan. Updated PT Jadyn, who plans to complete cg training, stairs already completed. Updated Ortho PA who will keep discharge order in place for home unless otherwise notified. CM team will plan to follow clinical course closely; discharge home w/spouse to assist, possibly HH vs SNF. NICOLE Perez Discharge Planning/Care Management CM Discharge Assessment Start: 04/07/24 10:58 Freq: Status: Active Protocol: Document 04/07/24 10:58 AN[facility] (Rec: 04/07/24 11:08 [facility] [id number]) Discharge Planning Assessment Assigned Lpn Rn NICOLE Hollingsworth DPOA/Assigned Designee Name Curtis Navarro, spouse Contact Information [phone] Advance Directives? Yes Advance Directives on File No History Provided By Patient,Medical Record Prior Living Arrangements House Household Members spouse Type of transporation used prior to Drives own vehicle admit Independent with ADL's Yes Is patient alert and oriented? Yes Needs Assistance With Meal Prep,Home Chores / Shopping Comment Poor activity tolerance due to back pain Comment No DME used prior to surgery. home w/walker vs SNF Barriers to Discharge Yes Comment Patient unsure whether spous will be able to provide assist . Caregiver training pending. Transportation Arrangement TBD Referrals Initiated Other Additional Comment Awaiting addtl input from patient, spouse and PT re dispo recommendation
[2024-04-07 12:00] VITALS: BP 115/55; PULSE 83; RESP 18; TEMP 38.3; O2SAT 96
[2024-04-07] MEDS: ACETAMINOPHEN 325 MG TABLET 650 MG PO (13:17)
--- NOTE | 2024-04-07 16:09 | PT-IP ANOTE ---
checked on pt and pt with spouse in room. pt in bed and trying to sleep. pt refused PT and stated that he just got his pain meds. pt received his pain meds per nurse ~ 15 min ago. asked pt if he wants PT to come back later. pt stated For what? and told PT that this PT does not understand that he cannot move after he gets his pain meds. Spouse stated that pt gets loopy after taking his pain meds and needs to sleep. asked pt if he feels like the pain meds is too much for him and can ask the doctor if it can be adjusted if needed. pt stated to leave the medications as it is. explained to pt that pain meds should control some of the pain but not to the point where pt is loopy and not able to get up. spouse wants pt to sleep and does not want PT until tomorrow. spouse stated that she is worried about pt's fever, low BP and risk of falling. informed spouse that pt was only needing CGA to min A with mobility and there is going to be a fall risk all the time. 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 spouse stated that she will be coming tomorrow at ~ 10-1030am. will plan to see pt for PT around that time. informed nurse regarding pt response to pain meds and also informed rn case management that pt refused and was not able to do caregiver training.
[2024-04-07 17:28] VITALS: BP 114/69; PULSE 89; RESP 12; TEMP 36.8; O2SAT 93
[2024-04-07] MEDS: OXYCODONE IR 5 MG TABLET PO ×2 (19:49→21:56)
[2024-04-07 20:00] VITALS: BP 119/60; PULSE 84; RESP 17; TEMP 37.1; O2SAT 98
[2024-04-07 20:08] VITALS: BP 119/60; PULSE 84
[2024-04-07] MEDS: LOSARTAN 50 MG TABLET 100 MG PO (20:08)
[2024-04-07] MEDS: SENNOSIDES 8.6 MG TABLET 17.2 MG PO (20:09)
[2024-04-07] MEDS: ATORVASTATIN 20 MG TABLET 80 MG PO (20:10)
[2024-04-08] VITALS (7 sets, daily range): BP systolic 93–128; BP diastolic 56–86; PULSE 70–89; RESP 16–20; TEMP 36.2–38; O2SAT 93–96
[2024-04-08] MEDS: OXYCODONE IR 5 MG TABLET PO ×6 (01:23→21:17)
[2024-04-08] MEDS: PANTOPRAZOLE DR 20 MG TABLET PO (06:41)
--- NOTE | 2024-04-08 06:59 | PM.PNPO.1 ---
Subjective Subjective Date Patient Seen: 04/08/24 Time Patient Seen: 07:01 Interval history: Pt sitting up in chair, comfortable. Per his report, he has been having difficulty w/ pain control, he is given oxycodone - which works - but then he is 'zonked' and can't work w/ PT. He says no one seems to understand this. He expresses trepidation with transferring and ambulating independently, as well as concern for his 's well-being if she needs to do anything physical with him. We discussed possible rehab, and he is open to this if he has not made adequate progress w/ PT. We discussed that he either needs to go home or go to SNF; he can't go home to 'see how he does' and then transfer from home to a SNF. He is eating and voiding without difficulty. Exam Vital Signs (past 8 hours): - 04/08/24 03:49 Temperature 97.8 F Pulse Rate 86 Respiratory Rate 18 Blood Pressure 122/86 Pulse Oximetry 96 Oxygen Flow Rate 0 Oxygen Delivery Method Room Air Oxygen Flow Rate 0 Narrative Exam Narrative: 5/5 strength in hip flexors, quadriceps, hamstrings, DF, PF, EHL bilaterally. Sensation to light touch intact throughout BLE, calves soft and compressible. Dressing placed intraoperatively w/ scant bloody drainage bilaterally. Objective Labs 04/07/24 05:18 PFSH Medical History History of COVID-19 Meniere's disease Easy bruisability Osteoarthritis Prostate cancer (~2017) HLD (hyperlipidemia) MAYTE on CPAP Hearing impaired Numbness Sciatica HTN (hypertension) GERD (gastroesophageal reflux disease) Surgical History Hx of eye surgery (01/2024) History of total right hip replacement (03/23/20) History of right hip replacement Hx of decompressive lumbar laminectomy Hx of appendectomy History of colonoscopy History of esophagogastroduodenoscopy (EGD) Hx of bilateral cataract extraction Hx of neck surgery Social History household members: spouse Smoking Status: Former smoker alcohol intake: current Assessment & Plan Post-op Assessment and plan (1) S/P lumbar fusion: Assessment and Plan narrative: 1) Today is only POD# 2. I think it is reasonable to give the pt another day of inpt as he has yet to have a full day of PT since surgery. His will do caregiver training today. Based on PT eval and comfort of pt and spouse, will plan on d/c to either home or SNF tomorrow. 2) In terms of pain control, I discussed with the pt that being 'zonked' on pain medication means that he is getting too much. I am going to d/c his oxycodone 10mg and add cyclobenzaprine; he is agreeable to trying this. We want to manage his pain, but we want him to be able to work w/ PT to full capacity as well. 3) Will re-eval tomorrow morning for disposition. It appears that CM is aware of this patient and need for disposition options. Postoperative Procedures: Procedures Operation Date: 04/06/24 07:45 Actual Procedure Side Surgeon p L4-L5. [id number] Interbody Fusion/Laminotomy WITH POSTERIOR INSTRUMENTATION, L3-4 LAMINECTOMY Not Applicable Mika Kumar MD Postoperative day: 2 Quality VTE Deep Vein Thrombosis/Pulmonary Embolism Present on Admission: No
[2024-04-08] MEDS: DOCUSATE 100 MG CAPSULE PO ×2 (08:06→21:16)
[2024-04-08] MEDS: CHOLECALCIFEROL (VITAMIN D3) 5,000 UNIT TABLET 5000 UNIT PO (08:06)
[2024-04-08] MEDS: MULTIVITAMIN 1 TABLET 1 TAB PO (08:07)
[2024-04-08] MEDS: CYCLOBENZAPRINE 10 MG TABLET 5 MG PO ×2 (08:07→18:14)
[2024-04-08] MEDS: METOPROLOL ER 50 MG TABLET PO (08:07)
--- NOTE | 2024-04-08 10:10 | PT.IPTN ---
Current Diagnoses Spinal stenosis, lumbar region without neurogenic claudication (04/06/24) Spinal stenosis, lumbar region with neurogenic claudication (04/06/24) Postlaminectomy syndrome, not elsewhere classified (04/06/24) Arthrodesis status (04/06/24) Surgery Performed Operation Date: 04/06/24 07:45 Actual Procedures p L4-L5. [id number] Interbody Fusion/Laminotomy WITH POSTERIOR INSTRUMENTATION, L3-4 LAMINECTOMY(Not Applicable) - Mika Kumar MD Physical Therapy Treatment Note M2 PT-IP Current Condition Start: 04/07/24 11:57 Freq: NEEDED Status: Active Protocol: Document 04/07/24 09:10 AB (Rec: 04/07/24 12:12 AB [id number]) Physical Therapy Current Condition Current Condition Evaluation Date 04/07/24 Treatment Diagnosis s/p L4-5, L5S1 TLIF; difficulty in walking Onset Date 04/06/24 M3 PT-IP Subjective Start: 04/07/24 11:57 Freq: NEEDED Status: Active Protocol: Document 04/08/24 10:45 TS (Rec: 04/08/24 11:02 TS [id number]) Subjective Physical Therapy Visit Type Type Treatment Note Visit Start Time 10:10 Visit Stop Time 10:39 Number of WAREHOUSE HAND Visits 1 Physical Therapy Visit Comments Patient Comments Pt was found resting in bed, reports sharp pain in his bakc at times, he is agreeable to PT. Therapy Pain Assessment Pain When Pain Assessed At Rest Pain Present Pain Present Pain Reported M4 PT-IP Mobility and Gait Start: 04/07/24 11:57 Freq: NEEDED Status: Active Protocol: Document 04/08/24 10:45 TS (Rec: 04/08/24 11:02 TS [id number]) PT-Bed Mobility Assessment Rolling Level of Assist Standby Assistance Supine to Sit Supine to Sit Contact Guard Assistance, Minimal Assistance,1 Person Assistance Sit to Supine Sit to Supine Contact Guard Assistance Scooting Scooting to Edge of Bed Standby Assistance PT-Transfer Assessment Sit to and From Stand Sit to and from Stand Standby Assistance Equipment Transfer Assistive Device Gait Belt,Front Wheeled Walker Orthotic/Prosthetic Devices or Brace: No Comments Mobility Comments Pt recalled 2/3 spinal precautions(no lifting). Logroll to L side SBA, pt dmeonstrates good recall. Supine to sit pt required CGA/ Dallin for upirighting trunk and max cues for sequencing. STS with FWW SBA, pt has good standing balance. He ambulated ~200'SBA with FWW and a WBOS. He performed steps x2 on platform step CGA and use of FWW. He ambulated back to the room. Sit to supine CGA with max cues for sequencing into bed, spouse assisted pt. Pt requested to be in the chair. Supine to sit CGA from spouse. Pt transferred to the chair with FWW and SBA. Pt was left in chair, all needs met. Gait Assessment Gait Gait Assistance Required: Standby Assistance Distance (Feet) 200 Able to Maintain Weight Bearing Status Yes During Gait Assistive Devices Assistive Device Gait Belt,Front Wheeled Walker Orthotic/Prosthetic Devices or Brace: No Gait Deviations General Gait Pattern Ataxic,Decreased Stride Length ,Decreased Feet Clearance Factors Limiting Gait Function Factors Limiting Gait Function Decreased Activity Tolerance, Decreased Strength,Limited Range of Motion,Pain,Poor Balance,Poor Safety Awareness Stair Climbing Assessment Evaluation Level of Assist On Stairs Contact Guard Assistance Devices Stair Climbing Assistive Devices Front Wheel Walker Technique/Endurance Stair Climbing Technique Step to Step Number of Steps Climbed 1 Stair Climbing Set # Repetitions (reps) 2 PT-Balance Assessment Sitting Balance and Reactions Static Sitting Balance Ability Normal Dynamic Sitting Balance Ability Good Standing Balance and Reactions Static Standing Balance Ability Good Dynamic Standing Balance Ability Fair Device Used FWW M5 PT-IP Objective Assessments Start: 04/07/24 11:57 Freq: NEEDED Status: Active Protocol: Document 04/07/24 09:10 AB (Rec: 04/07/24 12:12 AB [id number]) Orientation Orientation/Cognition Level of Alertness Alert Orientation Name,Place,Situation Language Function Ability Hard of Hearing Safety Awareness Decreased Safety Awareness Memory Description No Deficits Noted Gross Range of Motion Lower Extremity ROM Assessment Within Functional Limits Strength Lower Extremity Strength Hip 3+/5 Knee 4-/5 Sensation Assessment Sensation Sensation Description Numbness Comments Sensation Comments B feet chronic numbness/ neuropathy per pt Muscle Tone Muscle Tone WNL Yes M6 PT-IP Treatment Start: 04/07/24 11:57 Freq: NEEDED Status: Active Protocol: Document 04/08/24 10:45 TS (Rec: 04/08/24 11:02 TS [id number]) Physical Therapy Treatment Education Education Provided Precautions,Weight Bearing Status,Post-Op Packet,Safety M7 PT-IP Assessment and Plan Start: 04/07/24 11:57 Freq: NEEDED Status: Active Protocol: Document 04/08/24 10:45 TS (Rec: 04/08/24 11:02 TS [id number]) PT Summary Assessment and Plan Potential Rehabilitation Potential Fair Summary Impairments Pain,ROM,Strength,Balance, Coordination,Sensation,Tone, Cognition,Bed Mobility, Transfers,Gait,Activity Tolerance Progress Towards Goals Progressing Toward Goals Assessment Summary Vincenzo is making progress with his mobility. He required cues for all bed mobility but did dmeonstrate some carryover and understanding at end of session. He progressed his gait to ~200' SBA with FWW. He continues to perform stairs x2 with FWW on platform step. Spouse was instructed in bed mobility, gait and stair training. PT is recommending Home vs SNF. Goals Bed Mobility Goal Independent Transfer Goal Independent,Front Wheeled Walker Gait Goal Independent,Front Wheel Walker Gait Distance 200 Other Goals up/down 1 platform step using fWW mod I Days to Meet Goals 5 Frequency of Treatment Frequency Of Treatment Twice a Day Treatment Plan Physical Therapy Treatment Plan Bed Mobility Training,Transfer Training,Gait Training, Therapeutic Exercise,Balance Retraining,Post Op Education, Discharge Planning,Hot or Cold Pack,Neuromuscular Re-ed, Coordination Retraining,Manual Therapy Precautions Lumbar Precautions Log Roll,No Twisting,Limit Bending,Lifting Restriction of 10 lbs,Gait Belt above Incisional Area Recommendations To Nursing Amount of Assist Needed 1 Person Assist Discharge Recommendations PT Discharge Recommendations Home vs SNF Transportation Needs at Discharge Private Vehicle
--- NOTE | 2024-04-08 11:44 | OT.IP.TRT ---
Current Diagnoses Spinal stenosis, lumbar region without neurogenic claudication (04/06/24) Spinal stenosis, lumbar region with neurogenic claudication (04/06/24) Postlaminectomy syndrome, not elsewhere classified (04/06/24) Arthrodesis status (04/06/24) Surgery Performed Operation Date: 04/06/24 07:45 Actual Procedures p L4-L5. [id number] Interbody Fusion/Laminotomy WITH POSTERIOR INSTRUMENTATION, L3-4 LAMINECTOMY(Not Applicable) - Mika Kumar MD Occupational Therapy Treatment Note M2 OT-IP Current Condition Start: 04/07/24 10:31 Freq: Status: Active Protocol: Document 04/07/24 10:32 [facility] (Rec: 04/07/24 10:51 [facility] [id number]) Occupational Therapy Current Condition Current Condition Evaluation Date 04/07/24 Treatment Diagnosis S/P L4-5, L5-S1 TLIF, L3-4 hemilaminectomy Diagnosis Onset Date 04/06/24 Post Operative Precautions Lumbar Precautions Log Roll,No Twisting,Limit Bending,Lifting Restriction of 10 lbs,Gait Belt above Incisional Area M3 OT- IP Subjective and Pain Start: 04/07/24 10:31 Freq: Status: Active Protocol: Document 04/08/24 10:59 [facility] (Rec: 04/08/24 11:44 [facility] [id number]) OT- Subjective Occupational Therapy Visit Type Type Treatment Note Visit Start Time 10:59 Visit Stop Time 11:15 Occupational Therapy Visit Comments Patient Comments Pt just finished with FRUIT LOADER and agreed to work with OT but not wanting to get up at this time. Pt's present in the room. Patient/Caregiver Goals TO go home. OT Pain Assessment Pain When Pain Assessed At Rest Pain Present Pain Present Pain Reported Location Back Description With Movement M4 OT- IP ADL's Start: 04/07/24 10:31 Freq: Status: Active Protocol: Document 04/08/24 10:59 [facility] (Rec: 04/08/24 11:44 [facility] [id number]) OT ECP-Mmdb-Zjxdlvj General Evaluation Self-Feeding Ability Independent OT ADL-Grooming Comments OT Grooming Comments Pt states did earlier. OT ADL-Oral Care Comments Oral Care Comments Pt states did prior. OT ADL-Dressing Comments OT Dressing Comments Pt states will use his LB dressing equipment at home. OT ADL-Toileting Comments OT Toileting Comments Pt states has a toilet paper aid and that his to assist if needed. OT ADL-Bathing Comments OT Bathing Comments To do caregiver training for a shower tomorrow with his around 1030AM. M5 OT- IP IADL's Start: 04/07/24 10:31 Freq: Status: Active Protocol: Document 04/07/24 10:32 [facility] (Rec: 04/07/24 10:51 [facility] [id number]) OT-Instrumental Activities of Daily Living Home Safety Awareness Awareness of Need for Assistance at Home Good Awareness Ability to Problem Solve Emergency Able to Problem Solve Situations Meal Preparation Meal Preparation Caregiver Provides Assist Engineering Job Titles Engineering Job Titles Caregiver Provides Assist M6 OT- IP Functional Cognition Start: 04/07/24 10:31 Freq: Status: Active Protocol: Document 04/08/24 10:59 [facility] (Rec: 04/08/24 11:44 [facility] [id number]) Cognitive Factors Limiting Selfcare Function Cognitive Comments Cognitive Assessment Comments Pt needing reassurance and encouragement and hopeful to go home tomorrow versus SNF. M7 OT- IP Mobility and Balance Start: 04/07/24 10:31 Freq: Status: Active Protocol: Document 04/07/24 10:32 [facility] (Rec: 04/07/24 10:51 [facility] [id number]) OT-Transfer Assessment Sit to and From Stand Sit to and from Stand Standby Assistance,Contact Guard Assistance Transfers Transfer Ability Standby Assistance Technique Transfer Destination Chair Transfer Technique Stand Step Pivot Devices Transfer Assistive Devices Gait Belt,Front Wheeled Walker Comments Mobility Comments CGA to close SBA to stand and vc for proper technique for transitions. OT- Balance Assessment Sitting Balance and Reactions Static Sitting Balance Ability Normal Dynamic Sitting Balance Ability Good Standing Balance and Reactions Static Standing Balance Ability Good Dynamic Standing Balance Ability Good M8 OT- IP Objective Assessments Start: 04/07/24 10:31 Freq: Status: Active Protocol: Document 04/07/24 10:32 [facility] (Rec: 04/07/24 10:51 [facility] [id number]) OT Strength Comments Strength Comments WFL for needs M9 OT- IP Assessment and Plan Start: 04/07/24 10:31 Freq: Status: Active Protocol: Document 04/08/24 10:59 [facility] (Rec: 04/08/24 11:44 [facility] [id number]) OT Summary Assessment and Plan Potential Rehabilitation Potential Good Analytic Complexity at Evaluation Low Summary OT Impairments Pain,Balance,Functional Mobility,Dressing,Toileting, Bathing,Toilet Transfers, Shower Transfers Progress Towards Goals Progressing Toward Goals Assessment Summary Pt and feeling more confident of possibly going home tomorrow versus SNF. Pt's wanting to do caregiver training for a shower tomorrow . Pt to go home versus SNF. Goals Grooming Goal Independent Dressing Goal Independent,Long Handled Shoe Horn,Rod Straightener,Sock Aid Toileting Goal Independent Bathing Goal Minimal Assistance Toilet Transfer Goal Independent Shower Transfer Goal Standby Assistance Days to Meet Goals 4 Frequency of Treatment Other frequency 5x/week Treatment Plan OT Treatment Plan ADL Training,Functional Mobility,Patient/Family Education,Discharge Planning Other Treatment Recommendations and Next shower Treatment Focus Discharge Recommendations OT Discharge Recommendations Home with Assistance,Home vs SNF Home Equipment Needs shower chair Transportation Needs at Discharge Private Vehicle
[2024-04-08] MEDS: ACETAMINOPHEN 325 MG TABLET 650 MG PO (12:03)
--- NOTE | 2024-04-08 13:08 | PT-IP ANOTE ---
Pt refused to work with PT this afternoon. PT may attempt to see pt later today if time is available.
--- NOTE | 2024-04-08 15:17 | CM.DPNOTE ---
DCP Cont PT/OT= Home vs SNF, patient/spouse request SNF. Referral sent to [facility] per patient preference. OLE for M[facility] at [facility] asking if patient can admit tomorrow 04/09, awaiting CB to discuss. JW
[2024-04-08] MEDS: SENNOSIDES 8.6 MG TABLET 17.2 MG PO (21:17)
[2024-04-08] MEDS: ATORVASTATIN 20 MG TABLET 80 MG PO (21:18)
[2024-04-09] MEDS: OXYCODONE IR 5 MG TABLET PO ×2 (02:33→05:37)
[2024-04-09] MEDS: CYCLOBENZAPRINE 10 MG TABLET 5 MG PO (02:34)
[2024-04-09 04:00] VITALS: BP 126/54; PULSE 83; RESP 16; TEMP 37.8; O2SAT 94
[2024-04-09] MEDS: PANTOPRAZOLE DR 20 MG TABLET PO (06:50)
[2024-04-09 08:00] VITALS: BP 136/67; PULSE 86; RESP 16; TEMP 37.3; O2SAT 98
--- NOTE | 2024-04-09 08:39 | CM.DPC ---
DCP SNF Discharge: Per Ortho PA, pt medically stable to discharge today and after discussion with pt and family decision for SNF at [facility] before return to home. SERENE called Rosalio, covering admissions for Merna this week, at [facility] and he reviewed the referral and confirms they can accept and currently their transport can arrive at 1500 but they will try for an earlier time with [facility] transport and keep SW updated if the time changes. SERENE updated REHABILITATION SERVICES MANAGER and RN. PASRR completed. Plan: SW to fax discharge packet to [facility] when available and to update family bedside and await to hear if transport will be earlier than 1500 today. NICOLE Monsalve
[2024-04-09] MEDS: DEXAMETHASONE 4 MG/ML VIAL IV (08:45)
[2024-04-09] MEDS: AMLODIPINE 5 MG TABLET 10 MG PO (08:45)
[2024-04-09 08:46] VITALS: BP 136/67; PULSE 86
[2024-04-09] MEDS: DOCUSATE 100 MG CAPSULE PO (08:46)
[2024-04-09] MEDS: hydroCHLOROthiazide 25 MG TABLET PO (08:46)
[2024-04-09] MEDS: CHOLECALCIFEROL (VITAMIN D3) 5,000 UNIT TABLET 5000 UNIT PO (08:46)
[2024-04-09] MEDS: METOPROLOL ER 50 MG TABLET PO (08:46)
[2024-04-09] MEDS: MULTIVITAMIN 1 TABLET 1 TAB PO (08:47)
--- NOTE | 2024-04-09 10:00 | OT.IP.TRT ---
Current Diagnoses Spinal stenosis, lumbar region without neurogenic claudication (04/06/24) Spinal stenosis, lumbar region with neurogenic claudication (04/06/24) Postlaminectomy syndrome, not elsewhere classified (04/06/24) Arthrodesis status (04/06/24) Surgery Performed Operation Date: 04/06/24 07:45 Actual Procedures p L4-L5. [id number] Interbody Fusion/Laminotomy WITH POSTERIOR INSTRUMENTATION, L3-4 LAMINECTOMY(Not Applicable) - Mika Kumar MD Occupational Therapy Treatment Note M2 OT-IP Current Condition Start: 04/07/24 10:31 Freq: Status: Active Protocol: Document 04/07/24 10:32 [facility] (Rec: 04/07/24 10:51 [facility] [id number]) Occupational Therapy Current Condition Current Condition Evaluation Date 04/07/24 Treatment Diagnosis S/P L4-5, L5-S1 TLIF, L3-4 hemilaminectomy Diagnosis Onset Date 04/06/24 Post Operative Precautions Lumbar Precautions Log Roll,No Twisting,Limit Bending,Lifting Restriction of 10 lbs,Gait Belt above Incisional Area M3 OT- IP Subjective and Pain Start: 04/07/24 10:31 Freq: Status: Active Protocol: Document 04/09/24 10:00 [facility] (Rec: 04/09/24 10:46 [facility] [id number]) OT- Subjective Occupational Therapy Visit Type Type Treatment Note Visit Start Time 10:00 Visit Stop Time 10:38 Occupational Therapy Visit Comments Patient Comments Pt after encouragement from therapist and , agreed to shower. Patient/Caregiver Goals To go to skilled rehab. OT Pain Assessment Pain When Pain Assessed During Mobility Location Back Intensity 5 Scale Used Numeric (0 - 10) M4 OT- IP ADL's Start: 04/07/24 10:31 Freq: Status: Active Protocol: Document 04/09/24 10:00 [facility] (Rec: 04/09/24 10:46 [facility] [id number]) OT QUK-Finl-Zhfcauc General Evaluation Self-Feeding Ability Independent OT ADL-Dressing General Eval Upper Body Dressing Ability Minimal Assistance Lower Body Dressing Ability Maximum Assistance Comments OT Dressing Comments DEMETRIS for gown and assist for socks. Pt too tired to practice LB dressing equipment needs. OT ADL-Toileting General Evaluation Toileting Ability Standby Assistance Comments OT Toileting Comments Pt able to sit to urinate. OT ADL-Bathing Bathing Type Bathing Type Shower General Evaluation Bathing Ability Moderate Assistance Comments OT Bathing Comments Pt needing assist for his back ,legs, and pericare needs. M5 OT- IP IADL's Start: 04/07/24 10:31 Freq: Status: Active Protocol: Document 04/07/24 10:32 [facility] (Rec: 04/07/24 10:51 [facility] [id number]) OT-Instrumental Activities of Daily Living Home Safety Awareness Awareness of Need for Assistance at Home Good Awareness Ability to Problem Solve Emergency Able to Problem Solve Situations Meal Preparation Meal Preparation Caregiver Provides Assist Molded Grid And Parts Inspector Molded Grid And Parts Inspector Caregiver Provides Assist M6 OT- IP Functional Cognition Start: 04/07/24 10:31 Freq: Status: Active Protocol: Document 04/09/24 10:00 [facility] (Rec: 04/09/24 10:46 [facility] [id number]) Cognitive Factors Limiting Selfcare Function Cognitive Ability Safety Awareness Decreased Ability to Apply Precautions,Underestimates Need for Assistance Cognitive Comments Cognitive Assessment Comments Pt continues to need safety cues for FWW use to be sure to keep the FWW in front of him at all times. VC to slow down as pt is a little impulsive. Pt needing cues to push up from surfaces versus FWW. M7 OT- IP Mobility and Balance Start: 04/07/24 10:31 Freq: Status: Active Protocol: Document 04/09/24 10:00 [facility] (Rec: 04/09/24 10:46 [facility] [id number]) OT-Transfer Assessment Sit to and From Stand Sit to and from Stand Minimal Assistance,Moderate Assistance Transfers Transfer Ability Contact Guard Assistance Technique Transfer Destination Bed,Chair,Shower Stall,Toilet Transfer Technique Stand Step Pivot Devices Transfer Assistive Devices Gait Belt,Front Wheeled Walker Comments Mobility Comments DEMETRIS to MODA to stand as pt has difficulty with transitions when coming to stand to the FWW. MODA for bed mobility needs as well. Once on his feet CGA with FWW and for balance while going over the threshold of the shower. OT- Balance Assessment Sitting Balance and Reactions Static Sitting Balance Ability Normal Dynamic Sitting Balance Ability Good Standing Balance and Reactions Static Standing Balance Ability Good Dynamic Standing Balance Ability Fair M8 OT- IP Objective Assessments Start: 04/07/24 10:31 Freq: Status: Active Protocol: Document 04/07/24 10:32 [facility] (Rec: 04/07/24 10:51 [facility] [id number]) OT Strength Comments Strength Comments WFL for needs M9 OT- IP Assessment and Plan Start: 04/07/24 10:31 Freq: Status: Active Protocol: Document 04/09/24 10:00 [facility] (Rec: 04/09/24 10:46 [facility] [id number]) OT Summary Assessment and Plan Potential Rehabilitation Potential Good Analytic Complexity at Evaluation Low Summary OT Impairments Pain,Balance,Functional Mobility,Dressing,Toileting, Bathing,Toilet Transfers, Shower Transfers Progress Towards Goals Progressing Toward Goals Assessment Summary Pt having more difficulty with transitions and having spasms. Able to do caregiver training with pt's for ADL and mobility needs. Pt looking to go to skilled rehab. Goals Grooming Goal Independent Dressing Goal Independent,Long Handled Shoe Horn,Electric Meter Installer,Sock Aid Toileting Goal Independent Bathing Goal Minimal Assistance Toilet Transfer Goal Independent Shower Transfer Goal Independent Days to Meet Goals 10 Frequency of Treatment Other frequency 5x/week Treatment Plan OT Treatment Plan ADL Training,Functional Mobility,Patient/Family Education,Discharge Planning Discharge Recommendations OT Discharge Recommendations SNF Rehab Transportation Needs at Discharge Private Vehicle,Wheelchair/ Cabulance
--- NOTE | 2024-04-09 11:07 | P.DS_ITS ---
History of Present Illness History of Present Illness Date Patient Seen: 04/09/24 Time Patient Seen: 07:30 Chief complaint: Low back pain Narrative: Patient states that his pain is being controlled with just 5 mg of oxycodone. He has been taking cyclobenzaprine every 6 hours as needed for spasms. Primary complaint is the spasms he has in his back postoperatively. He is unable to work with physical therapy yesterday due to the spasms. He is able to stand and ambulate with 1 social worker assistant. He has no complications with urination. States he has not had a bowel movement yet. Discharge Providers Provider Date of admission: 04/06/24 05:57 Discharge Date: 04/09/24 Primary care physician: Rajeev Brown MD Consults: 04/06/24 13:20 Consult to Occupational Therapy Evaluate & Treat Comment: Physician Instructions: Evaluate and treat Consult to Physical Therapy Evaluate & Treat Comment: Physician Instructions: Evaluate and Treat Discharge provider: Anthony Hollis PA-C Summary Hospital Course Discharge Diagnosis: 1. L4-5, L5-S1 history of laminectomies with epidural scarring 2. L4-5, L5-S1 bilateral foramen stenosis with radiculopathy 3. L3-4 spinal stenosis with neurogenic claudication Hospital Course: 1. L4-5, L5-S1 Postero-lateral and posterior interbody fusion 2. L4-5, L5-S1 interbody cage placement. 3. L4-5, L5-S1 decompressive laminectomy with bilateral facetecomies 4. L4-5, L5-S1 Posterior segmental instrumentation 5. L3-4 hemilaminectomy 6. [place] of bone marrow from iliac crest 7. Utilization of microsurgical technique and operating microscope 8. Utilization of robotic assisted navigation Same procedure as scheduled: Yes Indications: Patient has been having chronic back pain and worsening lumbar radiculopathy and symptoms of neurogenic claudication. Patient had prior L3-4 L4-5 laminectomy 20 years ago with worsening lower extremity pain weakness and numbness. Patient was found have severe L4-5 L5-S1 foraminal stenosis with L3-4 central stenosis correlating with patient's radiculopathy as well as neurogenic claudication. Patient failed multiple conservative management with worsening pain weakness and numbness in her lower extremity. Patient has been having difficulty performing activity of daily living. After discussing risks benefits of treatment options, patient elected proceed with surgery. Surgeon: Mika Kumar Interstate Bus Driver: Brittany Stone Click Yes if Unassisted: No Anesthesia Type: General Operative Notes Closure Type: primary Specimen(s): none sent Prosthetic devices, grafts, tissues, transplants, or devices: Globus CREO MIS screws, Rise cages Applied: catheter Estimated Blood Loss (mL): 150 Blood products transfused: none Patient admitted to the hospital for the above-mentioned procedure. Patient consented to the same. Patient at lumbar fusion April 06, 2020 14. Patient back in his room recovering well as in stable condition. Marginal pain management. Continue work on multimodal pain management today. Patient to mobilize with physical therapy. Limit bending, twisting, lifting. Patient will work with Physical therapy this morning. Patient will be discharged home after physical therapy if safe for home environment Status at Discharge Cognitive/behavioral status at discharge: at baseline, oriented Functional status at discharge: uses cane/walker Overall status at discharge: patient is progressing back to baseline Status at Discharge Cognitive/behavioral status at discharge: at baseline, oriented Functional status at discharge: uses cane/walker Overall status at discharge: patient is progressing back to baseline Time Spent with Patient Time spent: Less than 30 minutes Exam Vital Signs (past 8 hours): - 04/09/24 04:00 04/09/24 08:00 04/09/24 08:46 Temperature 100.1 F H 99.2 F Pulse Rate 83 86 86 Respiratory Rate 16 16 Blood Pressure 126/54 L 136/67 136/67 Pulse Oximetry 94 98 Oxygen Delivery Method Room Air Oxygen Flow Rate 0 Narrative Exam Narrative: 73-year-old male found sitting in a chair in apparent distress. 5/5 muscle strength at EPL, DF, PL, Quads and hamstrings. Sensation intact to light touch throughout the lower extremities bilaterally. No pain or warmth noted to palpation along the posterior calf or thigh. Resp Effort & Inspection: normal respiratory effort and able to speak in complete sentences Objective Labs 04/07/24 05:18 [facility] Medical History History of COVID-19 Meniere's disease Easy bruisability Osteoarthritis Prostate cancer (~2017) HLD (hyperlipidemia) MAYTE on CPAP Hearing impaired Numbness Sciatica HTN (hypertension) GERD (gastroesophageal reflux disease) Surgical History Hx of eye surgery (01/2024) History of total right hip replacement (03/23/20) History of right hip replacement Hx of decompressive lumbar laminectomy Hx of appendectomy History of colonoscopy History of esophagogastroduodenoscopy (EGD) Hx of bilateral cataract extraction Hx of neck surgery Social History household members: spouse Smoking Status: Former smoker alcohol intake: current Discharge Assessment & Plan Assessment and Plan Assessment: Patient progressing as expected Plan of Treatment: Multimodal pain management. Ordered 4mg dexamethasone to assist with ongoing spasms for discharge. Mobilize with physical therapy, limit bending, twisting, lifting Discharge to SNF as the patient is having difficulty ambulating or performing assisted function when lumbar spasms come on. While he has assistance at home, his is 68 years old and he is concerned for their well being should he fall. May discharge to home from SNF once safe for home environment. Patient has postoperative medications of oxycodone 5 mg Q 4 hours as needed for pain and hydroxyzine 25 mg every 6 hours as needed for postoperative spasm or nausea. Baseline pain relief should be with acetaminophen 500 mg every 4 hours. Follow up in clinic in 2 weeks for wound check. Discharge Plan Discharge Plan Patient Disposition: SNF Transfer to: [facility] Discharge orders & Medications Prescriptions: New acetaminophen 325 mg Tablet 650 mg PO Q6H PRN (Reason: Fever/Mild Pain (1-3)) Qty: 120 0RF magnesium hydroxide [Milk of Magnesia] 400 mg/5 mL Suspension 30 ml PO DAILY PRN (Reason: Constipation) Qty: 355 0RF bisacodyl 10 mg Suppository 10 mg PA PRN PRN (Reason: Constipation) Qty: 12 0RF docusate sodium 100 mg Capsule 100 mg PO BID Qty: 60 0RF hydroxyzine HCl 25 mg Tablet 25 mg PO Q6H PRN (Reason: Nausea or spasm) Qty: 60 0RF oxycodone 5 mg Tablet 5 mg PO Q4HR Qty: 30 0RF Continued multivitamin Capsule 1 cap PO DAILY Qty: 0 omeprazole 20 MG capsule,delayed release(DR/EC) 20 mg PO SEEINSTR Qty: 0 cholecalciferol (vitamin D3) [Vitamin D3] 125 mcg (5,000 unit) Tablet 125 mcg PO DAILY Qty: 0 hydrochlorothiazide 25 MG tablet 25 mg PO QDAY Qty: 30 1RF metoprolol succinate 50 mg Tablet Extended Release 24 Hr 50 mg PO DAILY losartan 50 MG tablet 100 mg PO BEDTIME amlodipine [Norvasc] 5 MG tablet 10 mg PO QDAY diazepam [Valium] 5 mg tablet 5 mg PO BID PRN (Reason: muscle spasm) Qty: 10 0RF rosuvastatin 40 mg Tablet 40 mg PO BEDTIME Discontinued acetaminophen 325 mg tablet 650 mg PO BEDTIME Follow up/Referrals: Rajeev Brown MD [Primary Care Provider] - Mika Kumar MD [Physician] - 04/23/24 2:00 pm (Follow up w/ Brittany Stone PA-C, at [facility] in [place].) Diet/Activity/Treatments Diet: Diet as Tolerated Activity: No deep bending or twisting at the waist. No lifting more than 10 pounds. Cold/Heat Therapy: Heating pad to low back as needed for spasm. Skin/Wound/Dressing Care Report to your healthcare provider any signs of infection, such as:: chills, fever, night sweats, unusual drainage and unusual redness Dressing: May shower. Keep dressings as dry as possible. If dressings become wet or dirty, may remove and replace with clean, dry gauze. No bathing or otherwise soaking incisions. Do not apply any creams, lotions, or ointments to incisions. Special Rehabilitation Services Reason for rehabilitation: Post-operative therapy Rehab type: Physical therapy and Occupational therapy Restrictions to mobility: No deep bending or twisting at the waist. No lifting more than 10 pounds. Visit Report/Discharge Packet Instructions: DI for Transforaminal Lumbar Interbody Fusion Stand Alone Forms: Patient Portal/API, Stroke Signs & Symptoms, Surgery Discharge Discharge Data Primary Care Provider: Rajeev Brown Quality VTE Deep Vein Thrombosis/Pulmonary Embolism Present on Admission: No
--- NOTE | 2024-04-09 11:41 | CM.DPNOTE ---
DC Note Discharge to [facility] via w/c van oyster picker at 12. AGATHA Conway, kindly coordinating this discharge and has faxed DC ppk. Met w/patient to confirm discharge plan and reviewed SNF benefit with Medicare coverage. Patient appreciative, agreeable to plan. JW
--- NOTE | 2024-04-09 12:15 | PC.NURSE ---
Addendum entered by Tamiko Baptiste R.N. 04/09/24 12:26: Left voicemail to return call for RN report Original Note: Patient is A&OX4, VSS, afebrile on RA. He is preparing for discharge at noon to [facility]. He is able to stand and walke the halls with SBA and FWW. He showers with OT and dressing to back is changed. Incisions c/d/i with large amount of bruising. He denies numbnes to fingers, and some numbness to BLE's he states is unchanged. Patient is knowledgeable of spine precautions, meds, and follow up appointment. Transporter arrived to take patient at 1145 a.m. he was given his lunch to take to go and patient discharged at 1205 pm. at bedside bringing meet. Report called to [facility].
== END 2024-04-09 12:05 | DRG 455 ==
PROVIDERS: Admitting Provider Orthopaedic Surgery Orthopaedic Surgery of the Spine; PCP Internal Medicine; Referring Provider Orthopaedic Surgery; Visit Provider Orthopaedic Surgery Orthopaedic Surgery of the Spine
PROC: 0SG00AJ Fusion of Lumbar Vertebral Joint with Interbody Fusion Device, Posterior Approach, Anterior Column, Open Approach (ICD-10-PCS; principal; 2024-04-06 07:45)
DX: M48.062 Spinal stenosis, lumbar region with neurogenic claudication (principal); M96.1 Postlaminectomy syndrome, not elsewhere classified; M48.07 Spinal stenosis, lumbosacral region; M54.16 Radiculopathy, lumbar region; M54.17 Radiculopathy, lumbosacral region; E78.5 Hyperlipidemia, unspecified; G47.33 Obstructive sleep apnea (adult) (pediatric); I10 Essential (primary) hypertension; K21.9 Gastro-esophageal reflux disease without esophagitis; M62.830 Muscle spasm of back; Z87.891 Personal history of nicotine dependence
CPT/HCPCS: 36415; 72100; 76000; 85014; 85018; 97116; 97161; 97165; 97530; 97535; C1713; C1831; C9290; J0171; J0330; J0690; J1100; J1170; J2405; J2704; J3010; J3410

== ENCOUNTER → 2024-09-11 12:38 | Outpatient (CLI) | payer MEDICARE, OTHER, SELFPAY ==
[2024-04-06 06:11] VITALS: BMI 31.7
--- NOTE | 2024-09-11 12:41 | DI.CT.S_ITS ---
PROCEDURE: CT CERVICAL SPINE WO CON INDICATIONS: CERVICAL MYELORADICULOPATHY TECHNIQUE: Noncontrast 3 mm thick sections acquired from the skull base to the T4 level. Sagittal and coronal reformats were then constructed. For radiation dose reduction, the following was used: automated exposure control, adjustment of mA and/or kV according to patient size. COMPARISON: [facility] Outside Film, MR, MR CERVICAL SPINE WITHOUT CONTRAST, 08/18/2024, 8:54 (images only, no report). FINDINGS: Image quality: Excellent. Bones: No fractures or dislocations. Visualized superior ribs are intact. There is straightening of the normal cervical lordosis. No focal AP alignment abnormality is seen. And Focal degenerative change is seen involving the C1-C2 interface anteriorly. There is vlwn-if-aqzcliid disc space narrowing seen at C3-C4 and C4-C5. There is moderate disc space narrowing seen at C5-C6 and C6-C7. Multiple levels of posteriorly directed endplate osteophytes are seen, which are worst at the C5-C6 level. Multiple levels of facet hypertrophy can be seen. Soft tissues: Prevertebral soft tissues are normal in thickness. No paravertebral hematomas. No apical pneumothoraces. Atherosclerotic calcification is noted. IMPRESSION: Multiple levels of significant cervical spine degenerative changes can be seen, which are worst inferiorly. Dictated by: Anand Sanders M.D. on 09/11/2024 at 12:11 Approved by: Anand Sanders M.D. on 09/11/2024 at 12:13
== END ==
LOC: CT 12:40
PROVIDERS: PCP Internal Medicine; Referring Provider Orthopaedic Surgery Orthopaedic Surgery of the Spine; Visit Provider Orthopaedic Surgery Orthopaedic Surgery of the Spine
DX: M47.12 Other spondylosis with myelopathy, cervical region (principal); M47.22 Other spondylosis with radiculopathy, cervical region
CPT/HCPCS: 72125

== ENCOUNTER → 2024-10-14 13:02 | Outpatient (CLI) | payer MEDICARE, OTHER, SELFPAY ==
[2024-10-12 14:29] VITALS: BMI 31.7
--- NOTE | 2024-10-14 13:37 | DI.RAD.S_ITS ---
PROCEDURE: XR CERVICAL SPINE 4V OR 5V INDICATIONS: NECK PAIN TECHNIQUE: 5 views of the cervical spine acquired. COMPARISON: None. FINDINGS: Bones: Straightening of the normal cervical lordosis. Normal bone mineralization and craniovertebral relationships. Disc space narrowing and hypertrophic arthropathy noted in the mid cervical spine. Foraminal narrowing noted at C3-4 and C5-6 on the right and C1-2 and C2-3 on the left Soft tissues: No prevertebral soft tissue swelling. 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 on 10/14/2024 at 15:33
== END ==
PROVIDERS: PCP Internal Medicine; Referring Provider Physical Medicine & Rehabilitation; Visit Provider Physical Medicine & Rehabilitation
DX: C61 Malignant neoplasm of prostate (principal); M47.812 Spondylosis without myelopathy or radiculopathy, cervical region; M50.320 Other cervical disc degeneration, mid-cervical region, unspecified level; M48.02 Spinal stenosis, cervical region; M54.9 Dorsalgia, unspecified; Z98.1 Arthrodesis status; Z96.641 Presence of right artificial hip joint
CPT/HCPCS: 72050; 99214